=== PATIENT | male | born 1960 | race Caucasian/White ===

== ENCOUNTER 2020-06-01 08:14 | Outpatient (REF) | payer OTHER, SELFPAY ==
[2020-06-01 11:51] LABS: Alanine Aminotransferase 32 U/L (0-40); Albumin Level 4.6 g/dL (3.5-5.0); Alkaline Phosphatase 75 U/L (39-117); Anion Gap 15 (12-20); Aspartate Amino Transferase 26 U/L (5-37); Bilirubin Total 0.6 mg/dL (0.0-1.0); Blood Urea Nitrogen 16 mg/dL (9-16); Calcium 9.5 mg/dL (8.4-10.2); Carbon Dioxide 30 mmol/L (22-29); Chloride 100 mmol/L (96-108); Cholesterol 163 mg/dL; Estimated Glomerular Filt Rate > 60; Glucose Fasting 125 mg/dL (60-99); HDL Cholesterol 43 mg/dL; LDL Cholesterol Calculated 101 mg/dl; Potassium 4.7 mmol/l (3.3-5.1); Sodium 140 mmol/L (135-145); Total Protein 7.7 g/dL (6.5-8.0); Triglycerides 99 mg/dL
[2020-06-01 12:30] LABS: Creatinine Urine 191.15 mg/dL; Microalbum/Creatinine Ratio Ur 5.7 ug/mg cr
== END 2020-06-01 08:15 | disposition home or self-care (01) ==
LOC: HO.HMGCLDS 08:14
PROVIDERS: PCP Internal Medicine; Visit Provider Internal Medicine
DX: E78.2 Mixed hyperlipidemia (principal); E11.9 Type 2 diabetes mellitus without complications; Z79.4 Long term (current) use of insulin
CPT/HCPCS: 36415; 80053; 80061; 82043

== ENCOUNTER 2021-02-25 07:50 | Outpatient (REF) | payer OTHER, SELFPAY ==
[2021-02-25 11:44] LABS: Estimated Average Glucose 146 mg/dL; Hemoglobin A1c % 6.7 %
[2021-02-25 12:05] LABS: Prostate Specific Antigen Scr 0.69 ng/mL (<0.05-4.0)
[2021-02-25 12:16] LABS: Alanine Aminotransferase 24 U/L (0-40); Albumin Level 4.4 g/dL (3.5-5.0); Alkaline Phosphatase 73 U/L (39-117); Anion Gap 13 (12-20); Aspartate Amino Transferase 19 U/L (5-37); Bilirubin Total < 0.2 mg/dL (0.0-1.0); Blood Urea Nitrogen 20 mg/dL (9-16); Calcium 9.7 mg/dL (8.4-10.2); Carbon Dioxide 28 mmol/L (22-29); Chloride 102 mmol/L (96-108); Cholesterol 166 mg/dL; Estimated Glomerular Filt Rate > 60; Glucose Fasting 106 mg/dL (60-99); HDL Cholesterol 41 mg/dL; LDL Cholesterol Calculated 111 mg/dl; Potassium 4.8 mmol/L (3.3-5.1); Sodium 138 mmol/L (135-145); Total Protein 7.5 g/dL (6.5-8.0); Triglycerides 73 mg/dL
== END 2021-02-25 07:51 | disposition home or self-care (01) ==
LOC: HO.HMGCLDS 07:50
PROVIDERS: PCP Internal Medicine; Visit Provider Internal Medicine
DX: Z00.00 Encounter for general adult medical examination without abnormal findings (principal); E78.2 Mixed hyperlipidemia; E11.9 Type 2 diabetes mellitus without complications; Z79.4 Long term (current) use of insulin; Z12.5 Encounter for screening for malignant neoplasm of prostate
CPT/HCPCS: 36415; 80053; 80061; 83036; 84153

== ENCOUNTER 2022-02-17 06:35 | Outpatient (REF) | payer BC, SELFPAY ==
[2022-02-17 12:00] LABS: Estimated Average Glucose 146 mg/dL; Hemoglobin A1c % 6.7 %
[2022-02-17 12:06] LABS: Alanine Aminotransferase 20 U/L (0-40); Albumin Level 4.4 g/dL (3.5-5.0); Alkaline Phosphatase 79 U/L (39-117); Anion Gap 18 (12-20); Aspartate Amino Transferase 22 U/L (5-37); Bilirubin Total 0.4 mg/dL (0.0-1.0); Blood Urea Nitrogen 18 mg/dL (9-16); Calcium 9.6 mg/dL (8.4-10.2); Carbon Dioxide 25 mmol/L (22-29); Chloride 100 mmol/L (96-108); Cholesterol 194 mg/dL; Estimated Glomerular Filt Rate > 60; Glucose Fasting 105 mg/dL (60-99); HDL Cholesterol 43 mg/dL; LDL Cholesterol Calculated 138 mg/dl; Sodium 138 mmol/L (135-145); Total Protein 7.5 g/dL (6.5-8.0); Triglycerides 65 mg/dL
== END 2022-02-17 06:36 | disposition home or self-care (01) ==
LOC: HO.HMGCLDS 06:35
PROVIDERS: PCP Internal Medicine; Visit Provider Internal Medicine
DX: Z00.00 Encounter for general adult medical examination without abnormal findings (principal); E11.9 Type 2 diabetes mellitus without complications; E78.2 Mixed hyperlipidemia; Z79.4 Long term (current) use of insulin
CPT/HCPCS: 36415; 80053; 80061; 83036

== ENCOUNTER 2022-06-01 07:51 | Outpatient (REF) | payer BC, SELFPAY ==
[2022-06-01 11:29] LABS: MANUAL DIFF FLAG NO
[2022-06-01 11:56] LABS: Basophils Absolute Auto 0.1 X10*3/uL (0.0-0.2); Basophils Percent Auto 0.6 % (0-2); Eosinophils Absolute Auto 0.5 X10*3/uL (0.0-0.4); Eosinophils Percent Auto 5.7 % (0-4); Hematocrit 43.2 % (42.0-52.0); Hemoglobin 13.6 g/dl (14.0-18.0); Imm Gran Abs Auto 0.03 X10*3/uL (0.00-0.03); Imm Gran Pct Auto 0.4 % (0.0-0.4); Lymphocytes Absolute Auto 2.7 X10*3/uL (1.2-4.9); Mean Corpuscular HGB Conc 31.5 g/dl (31.0-36.0); Mean Corpuscular Hemoglobin 26.5 pg (27.0-33.0); Mean Corpuscular Volume 84.2 fL (80.0-98.0); Mean Platelet Volume 9.1 fL (9.4-12.4); Monocytes Absolute Auto 0.7 X10*3/uL (0.1-1.2); Monocytes Percent Auto 8.4 % (2-11); Neutrophils Absolute Auto 4.2 x10*3/uL (2.0-8.3); Neutrophils Percent Auto 51.9 % (45-73); Platelet Count 399 X10*3/uL (160-400); Red Blood Count 5.13 X10*6/uL (4.60-5.80); Red Cell Distribution Width 15.1 % (11.0-16.0); White Blood Count 8.1 X10*3/uL (4.8-10.8)
[2022-06-01 12:29] LABS: Microalbumin Urine < 5.0 mg/L
[2022-06-01 12:34] LABS: Estimated Average Glucose 163 mg/dL; Hemoglobin A1c % 7.3 %
[2022-06-01 13:17] LABS: Alanine Aminotransferase 23 U/L (0-40); Albumin Level 4.4 g/dL (3.5-5.0); Alkaline Phosphatase 82 U/L (39-117); Anion Gap 12 (12-20); Aspartate Amino Transferase 23 U/L (5-37); Bilirubin Total 0.7 mg/dL (0.0-1.0); Blood Urea Nitrogen 18 mg/dL (9-16); Calcium 9.7 mg/dL (8.4-10.2); Carbon Dioxide 28 mmol/L (22-29); Chloride 102 mmol/L (96-108); Cholesterol 170 mg/dL; Estimated Glomerular Filt Rate > 60; Glucose Fasting 103 mg/dL (60-99); HDL Cholesterol 43 mg/dL; LDL Cholesterol Calculated 113 mg/dl; Potassium 4.4 mmol/L (3.3-5.1); Sodium 138 mmol/L (135-145); Total Protein 7.3 g/dL (6.5-8.0); Triglycerides 71 mg/dL
== END 2022-06-01 07:52 | disposition home or self-care (01) ==
LOC: HO.HMGCLDS 07:51
PROVIDERS: PCP Internal Medicine; Visit Provider Internal Medicine
DX: Z00.00 Encounter for general adult medical examination without abnormal findings (principal); Z12.5 Encounter for screening for malignant neoplasm of prostate; E11.9 Type 2 diabetes mellitus without complications; E78.2 Mixed hyperlipidemia; Z79.4 Long term (current) use of insulin
CPT/HCPCS: 36415; 80053; 80061; 82043; 83036; 84153; 85025

== ENCOUNTER 2022-09-12 09:47 | Outpatient (REF) | payer BC, SELFPAY ==
[2022-09-12 11:17] LABS: MANUAL DIFF FLAG NO
[2022-09-12 11:45] LABS: Estimated Average Glucose 148 mg/dL; Hemoglobin A1C 182.7429 umol/L; Hemoglobin A1c % 6.8 %
[2022-09-12 11:48] LABS: Basophils Percent Auto 0.4 % (0-2); Eosinophils Absolute Auto 0.3 X10*3/uL (0.0-0.4); Eosinophils Percent Auto 3.8 % (0-4); Hemoglobin 13.5 g/dl (14.0-18.0); Imm Gran Pct Auto 1.2 % (0.0-0.4); Lymphocytes Absolute Auto 2.3 X10*3/uL (1.2-4.9); Lymphocytes Percent Auto 27.4 % (20-40); Mean Corpuscular HGB Conc 32.1 g/dl (31.0-36.0); Mean Corpuscular Hemoglobin 26.6 pg (27.0-33.0); Mean Corpuscular Volume 82.8 fL (80.0-98.0); Mean Platelet Volume 9.3 fL (9.4-12.4); Monocytes Absolute Auto 0.8 X10*3/uL (0.1-1.2); Monocytes Percent Auto 8.9 % (2-11); Neutrophils Percent Auto 58.3 % (45-73); Platelet Count 338 X10*3/uL (160-400); Red Blood Count 5.07 X10*6/uL (4.60-5.80); Red Cell Distribution Width 17.2 % (11.0-16.0); White Blood Count 8.5 X10*3/uL (4.8-10.8)
[2022-09-12 12:20] LABS: Alanine Aminotransferase 30 U/L (0-40); Albumin Level 4.3 g/dL (3.5-5.0); Alkaline Phosphatase 64 U/L (39-117); Anion Gap 14 (12-20); Aspartate Amino Transferase 24 U/L (5-37); Bilirubin Total 0.8 mg/dL (0.0-1.0); Blood Urea Nitrogen 18 mg/dL (9-16); Calcium 9.4 mg/dL (8.4-10.2); Carbon Dioxide 27 mmol/L (22-29); Chloride 100 mmol/L (96-108); Cholesterol 125 mg/dL; Estimated Glomerular Filt Rate > 60; Glucose Fasting 95 mg/dL (60-99); HDL Cholesterol 37 mg/dL; LDL Cholesterol Calculated 75 mg/dl; Potassium 4.5 mmol/L (3.3-5.1); Sodium 136 mmol/L (135-145); Total Protein 6.9 g/dL (6.5-8.0); Triglycerides 69 mg/dL
== END 2022-09-12 09:48 | disposition home or self-care (01) ==
LOC: HO.HMGCLDS 09:47
PROVIDERS: PCP Internal Medicine; Visit Provider Internal Medicine
DX: E11.9 Type 2 diabetes mellitus without complications (principal); E78.2 Mixed hyperlipidemia; Z79.4 Long term (current) use of insulin
CPT/HCPCS: 36415; 80053; 80061; 83036; 85025

== ENCOUNTER 2022-10-28 13:00 | Outpatient (RCR) | payer BC, SELFPAY ==
[2022-10-27 12:38] VITALS: BP 148/98; PULSE 65; O2SAT 98
--- NOTE | 2022-10-28 09:49 | MHC.PT.EP ---
[facility] [place] Office [place] [facility] [place] Office [address] Allen Payton [address] [phone] F: [phone] F: [phone] F: [phone] F: [phone] Physical Therapy Plan of Care Date of Evaluation: Date of Surgery: Diagnosis: This is a 62 yo male presenting to skilled PT with a script for vertigo. Assessment: This is a 62 yo male presenting to skilled PT with a script for vertigo. Patient reporting that he has had symptoms that started last year. He saw his PCP who started him on meclizine and after 3 weeks his symptoms improved. However 2 months ago symptoms started again. He recently had an ME back in June and does want to take more medication so is here to try PT. Patient reporting that his symptoms are described as room spinning and occur when sleeping, turning to the L, transferring supine <> sit, looking up overhead and looking to the L. He is not currently working due to ME in jun (supposed to return in december) but is also concerned about returning to work with these new symptoms of dizziness. Examination shows + oculomotor tests with saccades, (-) VBI B, and decreased cervical rotation and lateral flexion AROM. He was (+) for BPPV with luiza-hallpike L and performed 2 dave maneuvers which was improved s/p tx. Balance was normal except for some lightheadedness that was felt with head turns during DGI which may be vertigo related. S/S consistent with L PC BPPV and he would benefit from PT 2x/wk for 4wks to address impairments, implement HEP and optimize functional mobility. 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 Manual therapy to restore motion and function. Therapeutic exercise to improve strength and flexibility. Neuromuscular re-education for posture and balance. Therapeutic activities to return to functional activities of daily living. Electronically signed by: Rosa Akins PT Please sign and return to therapist. Thank you for your referral.
--- NOTE | 2022-12-02 09:52 | MHC.PT.DC ---
[facility] [place] Office [place] Office [place] Office [address] Allen Payton [address] [phone] F: [phone] F: [phone] F: [phone] F: [phone] Physical Therapy Discharge Report Diagnosis: This is a 62 yo male presenting to skilled PT with a script for vertigo. Date of Surgery: Date of Evaluation: 10/28/22 Date of Discharge: 12/02/22 Treatments to Date: 2 Cancellations to Date: 0 No Shows to Date: 0 Discharge Status: Achieved Goals Improved Function Independent with HEP Discharge Summary: 10/28: Patient was negative in all 6 canals, he had no symptoms and has been feeling much better. He was scheduled again the following week, educated him that if he continues to feel well than he can call to cancel which he did. I kept his chart open for 30 days and then DC'd. Electronically signed by: Rosa Akins, PT Please sign and return to therapist. Thank you for your referral.
== END 2022-12-02 09:52 | disposition home or self-care (01) ==
LOC: HO.PTCHIC 13:00
PROVIDERS: PCP Internal Medicine; Visit Provider Internal Medicine
DX: H81.10 Benign paroxysmal vertigo, unspecified ear (principal)
CPT/HCPCS: 95992; 97162

== ENCOUNTER 2022-12-08 08:39 | Outpatient (REF) | payer BC, SELFPAY ==
[2022-12-08 13:55] LABS: Creatinine Urine 98.24 mg/dL; Microalbum/Creatinine Ratio Ur 7.1 ug/mg cr
[2022-12-08 14:13] LABS: Alanine Aminotransferase 31 U/L (0-40); Albumin Level 4.4 g/dL (3.5-5.0); Alkaline Phosphatase 68 U/L (39-117); Anion Gap 15 (12-20); Aspartate Amino Transferase 29 U/L (5-37); Bilirubin Total 0.6 mg/dL (0.0-1.0); Blood Urea Nitrogen 20 mg/dL (9-16); Calcium 9.7 mg/dL (8.4-10.2); Carbon Dioxide 27 mmol/L (22-29); Chloride 98 mmol/L (96-108); Cholesterol 103 mg/dL; Estimated Glomerular Filt Rate > 60; Glucose Fasting 119 mg/dL (60-99); HDL Cholesterol 32 mg/dL; LDL Cholesterol Calculated 57 mg/dl; Potassium 3.9 mmol/L (3.3-5.1); Sodium 136 mmol/L (135-145); Total Protein 7.7 g/dL (6.5-8.0); Triglycerides 71 mg/dL
[2022-12-08 14:18] LABS: Estimated Average Glucose 148 mg/dL; Hemoglobin A1c % 6.8 %
== END 2022-12-08 08:40 | disposition home or self-care (01) ==
LOC: HO.HMGCLDS 08:39
PROVIDERS: PCP Internal Medicine; Visit Provider Internal Medicine
DX: I25.10 Atherosclerotic heart disease of native coronary artery without angina pectoris (principal); E78.2 Mixed hyperlipidemia; E11.9 Type 2 diabetes mellitus without complications
CPT/HCPCS: 36415; 80053; 80061; 82043; 83036

== ENCOUNTER 2022-12-13 08:20 | Outpatient (AMB) | payer BC, SELFPAY ==
--- NOTE | 2022-12-13 08:50 | MHC.PC.OV ---
Vital Signs 12/13/22 08:51 Height 5 ft 7 in Weight 156 lb BMI 24.4 BP 104/72 Blood Pressure Location Lt brachial Position Sitting Pulse 78 Pulse Source Pulse Oximeter Pulse Oximetry (%) 97 Oxygen Delivery Method Room Air Intake Visit Reasons: 3 Month follow up Intake Note: Pt is here today for 3 months follow up visit. Pt states that he would like to return to work in December. Pt states that he is feeling much better. Allergies empagliflozin [Jardiance] Adverse Reaction (Unknown, Verified 12/13/22 08:55) increased urination, candidiasis Medication List - Last Reconciled 12/13/22 by Lilo Palafox MD aspirin 81 mg PO DAILY atorvastatin 80 mg PO DAILY Farxiga (dapagliflozin propanediol) 10 mg PO DAILY NS lisinopril 5 mg PO DAILY metformin 850 mg PO TID metoprolol succinate ER 12.5 mg (1/2 x 25 mg) PO DAILY sertraline 50 mg PO DAILY ticagrelor (Brilinta) 90 mg PO BID Tobacco use date assessed: 12/13/22 Dental Screening Dental Screen Date: 12/13/22 Did you have a dental visit in the last 12 months?: Yes Did you have a dental problem in the last 6 months where you did not have access to dental care?: No Was dental information given to patient?: Patient has dentist HPI 3 Month follow up HPI Details Pt presents for f/u HTN. DM 2, hyperlipid, stable on meds. PFSH Medical History Hyperlipidemia Lumbar radiculopathy Type 2 diabetes mellitus Surgical History H/O colonoscopy No pertinent past surgical history Family History Father No problems noted. Mother No problems noted. Social History Housing: House Alcohol intake: never Patient Tobacco Use Status: Current everyday Tobacco user Tobacco use type: Cigarette Cigarettes Per Day: 8 e-Cigarette/Vaping Use: Never Used Current occupational status: employed Cognitive needs: No Hearing needs: No Vision needs: Yes Questionnaire Thrive Questionnaire Date Thrive assessed: 06/08/22 TREVIN-7 AMB Questionnaire TREVIN-7 Date TREVIN - 7 assessed: 06/08/22 Source: Developed by Drs. Drew Gutierrez, Lindsay Feliz, Tyler Chu and colleagues, with an educational cira from [employer]. Review of Systems Const All systems reviewed & are unremarkable except as noted in HPI and below Reports no additional complaints Eyes Reports no additional complaints ENT Reports no additional complaints Card Reports no additional complaints Resp Reports no additional complaints GI Reports no additional complaints Reports no additional complaints Physical exam (Primary Care) Vital Signs: Last Vital Signs Pulse 78 12/13/22 08:51 BP 104/72 12/13/22 08:51 Pulse Ox 97 12/13/22 08:51 Oxygen Delivery Method Room Air 12/13/22 08:51 BMI result Body Mass Index 24.4 Tobacco/Smoking Status: Tobacco use Status Tobacco use date assessed 12/13/22 12/13/22 08:57 Patient Tobacco Use Status Current everyday Tobacco 12/13/22 08:51 Tobacco use type Cigarette 12/13/22 08:51 e-Cigarette/Vaping Use Never Used 12/13/22 08:51 Thrive Assessment: Date of Thrive Assessment Date Thrive assessed 06/08/22 12/13/22 08:51 Const General: no acute distress HENMT Head: Yes normal to inspection General nose exam: Normal external nose present Mouth: Normal oral and palatal mucosa present Neck Neck: Yes no lymphadenopathy and Yes supple Resp Effort & Inspection: normal respiratory effort Auscultation: clear to auscultation bilaterally Cardio Rhythm: regular rhythm Heart sounds: S1 normal heart sound present and S2 normal heart sound present GI Inspection: Yes normal to inspection Palpation (GI): Soft to palpation Percussion: Yes normal to percussion Auscultation: normal bowel sounds Assessment and Plan Assessment & Plan (1) CAD (coronary artery disease): Comment: inf STEMI, S/P RENATA to mid RCA 07/10/22, CATH 30% stenosis prox LAD, CX, Echo EF 45-50%, AKINESIS DISEASE IN BASAL MID INFERIOR WALL Code(s): I25.10 - Atherosclerotic heart disease of [place] coronary artery without angina pectoris Plan: cont meds (2) Type 2 diabetes mellitus: Code(s): E11.9 - Type 2 diabetes mellitus without complications Plan: A1C 6.8, ADA diet increase exercise discussed with the patient. Trulicity 0.75 will be added to metformin and Farxiga. Return for physical in 4 months with a fasting labs before (3) Mixed hyperlipidemia: Code(s): E78.2 - Mixed hyperlipidemia Plan: cont statin Orders: Orders Comprehensive [place]. Panel Fast 4 Months E11.9 - Type 2 diabetes mellitus without complications, E78.2 - Mixed hyperlipidemia, I25.10 - Atherosclerotic heart disease of [place] coronary artery without angina pectoris Hemoglobin A1c 4 Months E11.9 - Type 2 diabetes mellitus without complications, E78.2 - Mixed hyperlipidemia, I25.10 - Atherosclerotic heart disease of [place] coronary artery without angina pectoris Complete Blood Count Auto Diff 4 Months E11.9 - Type 2 diabetes mellitus without complications, E78.2 - Mixed hyperlipidemia, I25.10 - Atherosclerotic heart disease of [place] coronary artery without angina pectoris Microalbumin, Random (w Creat) 4 Months E11.9 - Type 2 diabetes mellitus without complications, E78.2 - Mixed hyperlipidemia, I25.10 - Atherosclerotic heart disease of [place] coronary artery without angina pectoris Medications: New dulaglutide (Trulicity) 0.75 mg (0.5 mL) subcut QWEEK 6 mL 1RF Coding Level of Care Code Est Pt Level 4 (37441) Diagnoses CAD (coronary artery disease) I25.10 Type 2 diabetes mellitus E11.9 Mixed hyperlipidemia E78.2
[2022-12-13 08:51] VITALS: BP 104/72; PULSE 78; O2SAT 97; BMI 24.4
== END 2022-12-13 09:23 | disposition home or self-care (01) ==
PROVIDERS: Visit Provider Internal Medicine
DX: I25.10 Atherosclerotic heart disease of native coronary artery without angina pectoris (principal); E11.9 Type 2 diabetes mellitus without complications; E78.2 Mixed hyperlipidemia
CPT/HCPCS: 99214

== ENCOUNTER 2023-02-24 07:06 | Outpatient (REF) | payer BC, SELFPAY ==
[2023-02-24 13:48] LABS: Estimated Average Glucose 134 mg/dL; Hemoglobin A1c % 6.3 % (<6.0)
== END 2023-02-24 07:07 | disposition home or self-care (01) ==
LOC: HO.HMGCLDS 07:06
PROVIDERS: PCP Internal Medicine; Visit Provider Internal Medicine
DX: E78.2 Mixed hyperlipidemia (principal); I25.10 Atherosclerotic heart disease of native coronary artery without angina pectoris; E11.9 Type 2 diabetes mellitus without complications
CPT/HCPCS: 36415; 80053; 82043; 82570; 83036; 85025

== ENCOUNTER 2023-02-28 07:49 | Outpatient (AMB) | payer BC, SELFPAY ==
--- NOTE | 2023-02-28 07:51 | MHC.PC.OV ---
Vital Signs 02/28/23 07:56 Height 5 ft 7 in Weight 153 lb BMI 24.0 BP 100/64 Blood Pressure Location Rt brachial Position Sitting Pulse 72 Pulse Source Pulse Oximeter Pulse Oximetry (%) 97 Oxygen Delivery Method Room Air Intake Visit Reasons: Annual PE Intake Note: Pt is here today for PE. Allergies empagliflozin [Jardiance] Adverse Reaction (Unknown, Verified 02/28/23 07:52) increased urination, candidiasis Medication List - Last Reconciled 02/28/23 by Lilo Palafox MD aspirin 81 mg PO DAILY atorvastatin 80 mg PO DAILY dulaglutide (Trulicity) 0.75 mg (0.5 mL) subcut QWEEK Farxiga (dapagliflozin propanediol) 10 mg PO DAILY NS lisinopril 5 mg PO DAILY metformin 850 mg PO TID metoprolol succinate ER 12.5 mg (1/2 x 25 mg) PO DAILY sertraline 50 mg PO DAILY ticagrelor (Brilinta) 90 mg PO BID Tobacco use date assessed: 12/13/22 HPI Annual PE HPI Details Patient presents for physical.. PFSH Medical History Lumbar radiculopathy Type 2 diabetes mellitus Hyperlipidemia Surgical History H/O colonoscopy No pertinent past surgical history Family History Father No problems noted. Mother No problems noted. Social History Housing: House Alcohol intake: never Patient Tobacco Use Status: Current everyday Tobacco user Tobacco use type: Cigarette Cigarettes Per Day: 8 e-Cigarette/Vaping Use: Never Used Current occupational status: employed Cognitive needs: No Hearing needs: No Vision needs: Yes Questionnaire Thrive Questionnaire Date Thrive assessed: 06/08/22 TREVIN-7 AMB Questionnaire TREVIN-7 Date TREVIN - 7 assessed: 06/08/22 Source: Developed by Drs. Drew Gutierrez, Lindsay Feliz, Tyler Chu and colleagues, with an educational cira from [employer]. Review of Systems Const All systems reviewed & are unremarkable except as noted in HPI and below Reports no additional complaints Eyes Reports no additional complaints ENT Reports no additional complaints Card Reports no additional complaints Resp Reports no additional complaints GI Reports no additional complaints Reports no additional complaints Physical exam (Primary Care) Vital Signs: Last Vital Signs Pulse 72 02/28/23 07:56 BP 100/64 02/28/23 07:56 Pulse Ox 97 02/28/23 07:56 Oxygen Delivery Method Room Air 02/28/23 07:56 BMI result Body Mass Index 24.0 Tobacco/Smoking Status: Tobacco use Status Tobacco use date assessed 12/13/22 02/28/23 07:54 Patient Tobacco Use Status Current everyday Tobacco 02/28/23 07:54 Tobacco use type Cigarette 02/28/23 07:54 e-Cigarette/Vaping Use Never Used 02/28/23 07:54 Thrive Assessment: Date of Thrive Assessment Date Thrive assessed 06/08/22 02/28/23 07:54 Const General: no acute distress HENMT Head: Yes normal to inspection Face and sinus: Yes normal facial exam Eyes General: appearance normal, both eyes and all related structures Neck Neck: Yes no lymphadenopathy and Yes supple Resp Effort & Inspection: normal respiratory effort Auscultation: clear to auscultation bilaterally Cardio Rhythm: regular rhythm Heart sounds: S1 normal heart sound present and S2 normal heart sound present GI Inspection: Yes normal to inspection Palpation (GI): Soft to palpation Percussion: Yes normal to percussion Auscultation: normal bowel sounds Extrem General: Yes no clubbing, cyanosis or edema Assessment and Plan Assessment & Plan (1) Type 2 diabetes mellitus: Code(s): E11.9 - Type 2 diabetes mellitus without complications Plan: A1c is down to 6.3, ADA diet increase physical activity discussed with the patient. He will continue same medications and will return in 4 months with a fasting labs before (2) Mixed hyperlipidemia: Code(s): E78.2 - Mixed hyperlipidemia Plan: Continue statin (3) Annual physical exam: Code(s): Z00.00 - Encounter for general adult medical examination without abnormal findings Plan: Well-balanced diet regular physical activity discussed with the patient. (4) Ex-smoker: Comment: 1 PPD X 30 years quit 2022 Code(s): Z87.891 - Personal history of nicotine dependence Plan: Referred to lung cancer screening program Orders: Orders Comprehensive [place]. Panel Fast 4 Months E11.9 - Type 2 diabetes mellitus without complications, E78.2 - Mixed hyperlipidemia, Z00.00 - Encounter for general adult medical examination without abnormal findings Microalbumin, Random (w Creat) 4 Months E11.9 - Type 2 diabetes mellitus without complications, E78.2 - Mixed hyperlipidemia, Z00.00 - Encounter for general adult medical examination without abnormal findings Hemoglobin A1c 4 Months E11.9 - Type 2 diabetes mellitus without complications, E78.2 - Mixed hyperlipidemia, Z00.00 - Encounter for general adult medical examination without abnormal findings Complete Blood Count Auto Diff 4 Months E11.9 - Type 2 diabetes mellitus without complications, E78.2 - Mixed hyperlipidemia, Z00.00 - Encounter for general adult medical examination without abnormal findings Lipid Panel 4 Months E11.9 - Type 2 diabetes mellitus without complications, E78.2 - Mixed hyperlipidemia, Z00.00 - Encounter for general adult medical examination without abnormal findings Referrals Thoracic Surgery Referral Z87.891 - Personal history of nicotine dependence Coding Level of Care Code Est Pt Prev Care 40-64y(71103) Diagnoses Type 2 diabetes mellitus E11.9 Mixed hyperlipidemia E78.2 Annual physical exam Z00.00 Ex-smoker Z87.891
[2023-02-28 07:56] VITALS: BP 100/64; PULSE 72; O2SAT 97; BMI 24.0
== END 2023-02-28 08:34 | disposition home or self-care (01) ==
PROVIDERS: Visit Provider Internal Medicine
DX: E11.9 Type 2 diabetes mellitus without complications (principal); E78.2 Mixed hyperlipidemia; Z00.00 Encounter for general adult medical examination without abnormal findings; Z87.891 Personal history of nicotine dependence
CPT/HCPCS: 99396

== ENCOUNTER 2023-07-12 07:41 | Outpatient (REF) | payer BC, SELFPAY ==
[2023-07-12 11:15] LABS: MANUAL DIFF FLAG NO
[2023-07-12 11:26] LABS: Basophils Percent Auto 0.5 % (0-2); Eosinophils Absolute Auto 0.4 X10*3/uL (0.0-0.4); Eosinophils Percent Auto 5.3 % (0-4); Hematocrit 39.2 % (42.0-52.0); Hemoglobin 12.4 g/dl (14.0-18.0); Imm Gran Abs Auto 0.04 X10*3/uL (0.00-0.03); Imm Gran Pct Auto 0.5 % (0.0-0.4); Lymphocytes Absolute Auto 2.3 X10*3/uL (1.2-4.9); Lymphocytes Percent Auto 29.4 % (20-40); Mean Corpuscular HGB Conc 31.6 g/dl (31.0-36.0); Mean Corpuscular Hemoglobin 25.6 pg (27.0-33.0); Mean Corpuscular Volume 80.8 fL (80.0-98.0); Monocytes Absolute Auto 0.8 X10*3/uL (0.1-1.2); Monocytes Percent Auto 10.4 % (2-11); Neutrophils Absolute Auto 4.2 x10*3/uL (2.0-8.3); Neutrophils Percent Auto 53.9 % (45-73); Platelet Count 372 X10*3/uL (160-400); Red Blood Count 4.85 X10*6/uL (4.60-5.80); Red Cell Distribution Width 15.8 % (11.0-16.0); White Blood Count 7.8 X10*3/uL (4.8-10.8)
[2023-07-12 11:40] LABS: Alanine Aminotransferase 23 U/L (0-40); Albumin Level 4.1 g/dL (3.5-5.0); Alkaline Phosphatase 77 U/L (39-117); Anion Gap 13 (12-20); Aspartate Amino Transferase 27 U/L (5-37); Bilirubin Total 0.5 mg/dL (0.0-1.0); Blood Urea Nitrogen 20 mg/dL (9-16); Calcium 9.7 mg/dL (8.4-10.2); Carbon Dioxide 28 mmol/L (22-29); Chloride 101 mmol/L (96-108); Cholesterol 97 mg/dL (<200); Estimated Average Glucose 143 mg/dL; Estimated Glomerular Filt Rate > 60; Glucose Fasting 89 mg/dL (60-99); HDL Cholesterol 38 mg/dL (>40); Hemoglobin A1c % 6.6 % (<6.0); LDL Cholesterol Calculated 49 mg/dL (<100); Potassium 3.9 mmol/L (3.3-5.1); Sodium 138 mmol/L (135-145); Total Protein 7.4 g/dL (6.5-8.0); Triglycerides 51 mg/dL (<150)
[2023-07-12 11:54] LABS: Creatinine Urine 39.99 mg/dL; Microalbumin Urine < 5.0 mg/L
== END 2023-07-12 07:42 | disposition home or self-care (01) ==
LOC: HO.HMGCLDS 07:41
PROVIDERS: PCP Internal Medicine; Visit Provider Internal Medicine
DX: Z00.00 Encounter for general adult medical examination without abnormal findings (principal); E11.9 Type 2 diabetes mellitus without complications; E78.2 Mixed hyperlipidemia
CPT/HCPCS: 36415; 80053; 80061; 82570; 83036; 85025

== ENCOUNTER 2023-07-18 08:34 | Outpatient (AMB) | payer BC, SELFPAY ==
--- NOTE | 2023-07-18 08:41 | MHC.PC.OV ---
Vital Signs 07/18/23 08:42 Height 5 ft 7 in Weight 157 lb BMI 24.6 BP 114/74 Blood Pressure Location Rt brachial Position Sitting Pulse 76 Pulse Source Pulse Oximeter Pulse Oximetry (%) 98 Oxygen Delivery Method Room Air Intake Visit Reasons: 4 month fu Intake Note: Pt is here today for 4 months follow up visit. Allergies empagliflozin [Jardiance] Adverse Reaction (Unknown, Verified 07/18/23 08:51) increased urination, candidiasis Medication List - Last Reconciled 07/18/23 by Lilo Palafox MD aspirin 81 mg PO DAILY atorvastatin 80 mg PO DAILY clotrimazole 1% 1 appl topical BID dulaglutide (Trulicity) 0.75 mg (0.5 mL) subcut QWEEK Farxiga (dapagliflozin propanediol) 10 mg PO DAILY NS fluconazole 100 mg PO DAILY lisinopril 5 mg PO DAILY metformin 850 mg PO TID metoprolol succinate ER 12.5 mg (1/2 x 25 mg) PO DAILY sertraline 50 mg PO DAILY ticagrelor (Brilinta) 90 mg PO BID Tobacco use date assessed: 07/18/23 Dental Screening Dental Screen Date: 07/18/23 Did you have a dental visit in the last 12 months?: Yes Did you have a dental problem in the last 6 months where you did not have access to dental care?: No Was dental information given to patient?: Patient has dentist HPI 4 month fu HPI Details Pt presents for f/u DM 2, hyperlipid, HTN, stable on meds. Pt c/o feeling weak when working and bilateral lifting heavy objects for more than 2 hrs. PFSH Medical History Lumbar radiculopathy Type 2 diabetes mellitus Hyperlipidemia Surgical History H/O colonoscopy No pertinent past surgical history Family History Father No problems noted. Mother No problems noted. Social History Housing: House Alcohol intake: never Patient Tobacco Use Status: Former Tobacco user Quit Date: over a year Tobacco use type: Cigarette Cigarettes Per Day: 8 e-Cigarette/Vaping Use: Never Used Current occupational status: employed Cognitive needs: No Hearing needs: No Vision needs: Yes Questionnaire PHQ-9 Over the last 2 weeks, how often have you been bothered by any of the following problems? 1. Little interest or pleasure in doing things: not at all 2. Feeling down, depressed, or hopeless: not at all 3. Trouble falling or staying asleep, or sleeping too much: not at all 4. Feeling tired or having little energy: more than half the days 5. Poor appetite or overeating: not at all 6. Feeling bad about yourself - or that you are a failure or have let yourself or your family down: not at all 7. Trouble concentrating on things, such as reading the newspaper or watching television: not at all 8. Moving or speaking so slowly that other people could have noticed. Or the opposite - being so fidgety or restless that you have been moving around a lot more than usual: not at all 9. Thoughts that you would be better off or of hurting yourself in some way: not at all Total score: 2 Depression Screening Interpretation: Negative Depression Screening Done: Yes Source: Developed by Drs. Drew Gutierrez, Lindsay Feliz, Tyler Chu and colleagues, with an educational cira from [employer]. Thrive Questionnaire Date Thrive assessed: 07/18/23 I am a: Patient What is your living situation today?: I have a steady place to live Within the past 12 months, did the food you bought not last and you didn't have the money to get more?: Never true Within the past 12 months, did you worry whether your food would run out before you got money to buy more?: Never true Do you have trouble paying for medicines?: No Do you have trouble getting transportation to medical appointments?: No Do you have trouble paying your heating and electricity bill?: No Do you have trouble taking care of your child, family member or friend?: No Do you have trouble with day-to-day activities such as bathing, preparing meals, shopping, managing finances, etc.?: No Are you currently unemployed and looking for a job?: No Are you interested in more education?: No Please select the resources that you would like help with: None Currently or been in a relationship where the following occur: no concerns reported THRIVE Score: 0 AUDIT C Alcohol Use Questionnaire (AUDIT-C) 1. How often do you have a drink containing alcohol?: Never 3. How often do you have six or more drinks on one occasion?: Never Total Score: 0 TREVIN-7 AMB Questionnaire TREVIN-7 Date TREVIN - 7 assessed: 07/18/23 Feeling nervous, anxious, or on edge: 0 = Not at all Not being able to stop or control worryin = Not at all Worrying too much about different things: 0 = Not at all Trouble relaxin = Not at all Being so restless that it is hard to sit still: 0 = Not at all Becoming easily annoyed or irritable: 0 = Not at all Feeling afraid as if something awful might happen: 0 = Not at all Total TREVIN-7 score (0-4 normal; 5-9 mild; 10-14 moderate; 15-21 severe): 0 Source: Developed by Drs. Drew Gutierrez, Lindsay Feliz, Tyler Chu and colleagues, with an educational cira from [employer]. Review of Systems Const All systems reviewed & are unremarkable except as noted in HPI and below Reports no additional complaints Eyes Reports no additional complaints ENT Reports no additional complaints Card Reports no additional complaints Resp Reports no additional complaints GI Reports no additional complaints Reports no additional complaints Physical exam (Primary Care) Vital Signs: Last Vital Signs Pulse 76 07/18/23 08:42 BP 114/74 07/18/23 08:42 Pulse Ox 98 07/18/23 08:42 Oxygen Delivery Method Room Air 07/18/23 08:42 BMI result Body Mass Index 24.6 Tobacco/Smoking Status: Tobacco use Status Tobacco use date assessed 07/18/23 07/18/23 08:56 Patient Tobacco Use Status Former Tobacco user 07/18/23 08:56 Tobacco use type Cigarette 07/18/23 08:42 e-Cigarette/Vaping Use Never Used 07/18/23 08:42 PHQ-9: PHQ-9 Score PHQ-9: Total score 2 07/18/23 09:14 Depression Screening Interpretation: Negative Thrive Assessment: Date of Thrive Assessment Date Thrive assessed 07/18/23 07/18/23 08:56 Currently or been in a relationship where the following occur: no concerns reported Const General: no acute distress HENMT Head: Yes normal to inspection Ears: hearing grossly normal bilaterally General nose exam: Normal external nose present Face and sinus: Yes normal facial exam Mouth: Normal oral and palatal mucosa present Throat: Yes posterior oropharynx normal Eyes General: appearance normal, both eyes and all related structures Neck Neck: Yes no lymphadenopathy and Yes supple Resp Effort & Inspection: normal respiratory effort Auscultation: clear to auscultation bilaterally Cardio Rhythm: regular rhythm Heart sounds: S1 normal heart sound present and S2 normal heart sound present GI Inspection: Yes normal to inspection Palpation (GI): Soft to palpation Percussion: Yes normal to percussion Auscultation: normal bowel sounds Assessment and Plan Assessment & Plan (1) Anemia: Code(s): D64.9 - Anemia, unspecified Plan: check Iron and vit B12 level (2) Type 2 diabetes mellitus: Code(s): E11.9 - Type 2 diabetes mellitus without complications Plan: A1C is 6.5, ADA diet, regular exercise, change Trulicity to Ozempic 0.25 mg weekly, f/u 3 months (3) Mixed hyperlipidemia: Code(s): E78.2 - Mixed hyperlipidemia Plan: cont statin (4) Annual physical exam: Code(s): Z00.00 - Encounter for general adult medical examination without abnormal findings Orders: Orders Comprehensive [place]. Panel Fast 4 Months D64.9 - Anemia, unspecified, E11.9 - Type 2 diabetes mellitus without complications, E78.2 - Mixed hyperlipidemia, Z00.00 - Encounter for general adult medical examination without abnormal findings Microalbumin, Random (w Creat) 4 Months D64.9 - Anemia, unspecified, E11.9 - Type 2 diabetes mellitus without complications, E78.2 - Mixed hyperlipidemia, Z00.00 - Encounter for general adult medical examination without abnormal findings IRON PROFILE Today D64.9 - Anemia, unspecified Vitamin B12 and Folate Today D64.9 - Anemia, unspecified Immunofixation Pnl, Serum Today D64.9 - Anemia, unspecified Hemoglobin A1c 4 Months D64.9 - Anemia, unspecified, E11.9 - Type 2 diabetes mellitus without complications, E78.2 - Mixed hyperlipidemia, Z00.00 - Encounter for general adult medical examination without abnormal findings Lipid Panel 4 Months D64.9 - Anemia, unspecified, E11.9 - Type 2 diabetes mellitus without complications, E78.2 - Mixed hyperlipidemia, Z00.00 - Encounter for general adult medical examination without abnormal findings Complete Blood Count Auto Diff 4 Months D64.9 - Anemia, unspecified, E11.9 - Type 2 diabetes mellitus without complications, E78.2 - Mixed hyperlipidemia, Z00.00 - Encounter for general adult medical examination without abnormal findings PSA,Total (Free>4and<10) 4 Months D64.9 - Anemia, unspecified, E11.9 - Type 2 diabetes mellitus without complications, E78.2 - Mixed hyperlipidemia, Z00.00 - Encounter for general adult medical examination without abnormal findings Medications: New semaglutide (Ozempic) 0.25 mg (0.368 mL) subcut QWEEK 9 mL 2RF Discontinued dulaglutide (Trulicity) Discontinued Reason: Doctor's Order 0.75 mg (0.5 mL) subcut QWEEK 6 mL 1RF Coding Level of Care Code Est Pt Level 4 (79132) Diagnoses Anemia D64.9 Type 2 diabetes mellitus E11.9 Mixed hyperlipidemia E78.2 Annual physical exam Z00.00
[2023-07-18 08:42] VITALS: BP 114/74; PULSE 76; O2SAT 98; BMI 24.6
== END 2023-07-18 09:30 | disposition home or self-care (01) ==
PROVIDERS: PCP Internal Medicine; Visit Provider Internal Medicine
DX: D64.9 Anemia, unspecified (principal); E11.9 Type 2 diabetes mellitus without complications; E78.2 Mixed hyperlipidemia; Z00.00 Encounter for general adult medical examination without abnormal findings
CPT/HCPCS: 99214

== ENCOUNTER 2023-07-18 09:30 | Outpatient (REF) | payer BC, SELFPAY ==
[2023-07-18 11:57] LABS: Iron 45 mcg/dL (45-160); Percent Iron Saturation 14 % (15-50); Total Iron Binding Capacity 319 mcg/dL (228-428); Unsaturated Iron Binding 274 ug/dL
[2023-07-18 17:04] LABS: Folate 8.7 ng/mL (> or = 4.0)
[2023-07-19 15:59] LABS: Vitamin B12 194 pg/mL (200-900)
[2023-07-20 22:09] LABS: IgA 198 mg/dL (70-320); IgG 1254 mg/dL (600-1540); IgM 100 mg/dL (50-300)
== END 2023-07-18 09:31 | disposition home or self-care (01) ==
LOC: HO.HMGCLDS 09:30
PROVIDERS: PCP Internal Medicine; Visit Provider Internal Medicine
DX: D64.9 Anemia, unspecified (principal)
CPT/HCPCS: 36415; 82607; 82746; 82784; 83540; 86334

== ENCOUNTER 2023-09-14 09:38 | Outpatient (REF) | payer BC, SELFPAY ==
[2023-09-14 14:42] LABS: Folate 6.4 ng/mL (> or = 4.0)
[2023-09-14 21:04] LABS: Vitamin B12 603 pg/mL (200-900)
== END 2023-09-14 09:39 | disposition home or self-care (01) ==
LOC: HO.HMGCLDS 09:38
PROVIDERS: PCP Internal Medicine; Visit Provider Internal Medicine
DX: R79.89 Other specified abnormal findings of blood chemistry (principal)
CPT/HCPCS: 36415; 82607; 82746

== ENCOUNTER 2023-12-13 07:12 | Outpatient (REF) | payer BC, SELFPAY ==
[2023-12-13 10:39] LABS: MANUAL DIFF FLAG NO
[2023-12-13 11:21] LABS: Basophils Percent Auto 0.5 % (0-2); Eosinophils Absolute Auto 0.4 X10*3/uL (0.0-0.4); Eosinophils Percent Auto 4.7 % (0-4); Hematocrit 36.8 % (42.0-52.0); Hemoglobin 11.5 g/dl (14.0-18.0); Imm Gran Abs Auto 0.03 X10*3/uL (0.00-0.03); Imm Gran Pct Auto 0.4 % (0.0-0.4); Lymphocytes Absolute Auto 1.7 X10*3/uL (1.2-4.9); Lymphocytes Percent Auto 22.7 % (20-40); Mean Corpuscular HGB Conc 31.3 g/dl (31.0-36.0); Mean Corpuscular Hemoglobin 25.1 pg (27.0-33.0); Mean Corpuscular Volume 80.3 fL (80.0-98.0); Mean Platelet Volume 9.1 fL (9.4-12.4); Monocytes Absolute Auto 0.6 X10*3/uL (0.1-1.2); Monocytes Percent Auto 8.1 % (2-11); Neutrophils Absolute Auto 4.7 x10*3/uL (2.0-8.3); Neutrophils Percent Auto 63.6 % (45-73); Platelet Count 309 X10*3/uL (160-400); Red Blood Count 4.58 X10*6/uL (4.60-5.80); Red Cell Distribution Width 16.9 % (11.0-16.0); White Blood Count 7.4 X10*3/uL (4.8-10.8)
[2023-12-13 11:46] LABS: Estimated Average Glucose 151 mg/dL; Hemoglobin A1c % 6.9 % (<6.0)
[2023-12-13 11:52] LABS: Alanine Aminotransferase 30 U/L (0-40); Albumin Level 4.1 g/dL (3.5-5.0); Alkaline Phosphatase 77 U/L (39-117); Anion Gap 13 (12-20); Aspartate Amino Transferase 31 U/L (5-37); Bilirubin Total 0.5 mg/dL (0.0-1.0); Blood Urea Nitrogen 24 mg/dL (9-16); Calcium 9.5 mg/dL (8.4-10.2); Carbon Dioxide 26 mmol/L (22-29); Chloride 103 mmol/L (96-108); Cholesterol 112 mg/dL (<200); Estimated Glomerular Filt Rate > 60; Glucose Fasting 112 mg/dL (60-99); HDL Cholesterol 43 mg/dL (>40); LDL Cholesterol Calculated 56 mg/dL (<100); Potassium 4.6 mmol/L (3.3-5.1); Sodium 137 mmol/L (135-145); Total Protein 6.9 g/dL (6.5-8.0); Triglycerides 68 mg/dL (<150)
[2023-12-13 12:07] LABS: Creatinine Urine 73.65 mg/dL; Microalbumin Urine < 5.0 mg/L
[2023-12-13 12:09] LABS: PSA,Total (Free>4and<10) 0.57 ng/mL (0.00-4.00)
[2023-12-13 12:22] LABS: Vitamin B12 595 pg/mL (200-900)
== END 2023-12-13 07:13 | disposition home or self-care (01) ==
LOC: HO.HMGCLDS 07:12
PROVIDERS: PCP Internal Medicine; Visit Provider Internal Medicine
DX: Z00.00 Encounter for general adult medical examination without abnormal findings (principal); R79.89 Other specified abnormal findings of blood chemistry; D64.9 Anemia, unspecified; E11.9 Type 2 diabetes mellitus without complications; E78.2 Mixed hyperlipidemia; Z12.5 Encounter for screening for malignant neoplasm of prostate
CPT/HCPCS: 36415; 80053; 80061; 82043; 82570; 82607; 82746; 83036; 84153; 85025

== ENCOUNTER 2023-12-20 10:09 | Outpatient (AMB) | payer BC, SELFPAY ==
[2023-12-20 10:16] VITALS: BP 116/84; PULSE 81; O2SAT 98; BMI 24.1
--- NOTE | 2023-12-20 10:16 | MHC.PC.OV ---
Vital Signs 12/20/23 10:16 Height 5 ft 7 in Weight 154 lb BMI 24.1 BP 116/84 Blood Pressure Location Lt brachial Position Sitting Pulse 81 Pulse Source Pulse Oximeter Pulse Oximetry (%) 98 Oxygen Delivery Method Room Air Intake Visit Reasons: 4M F/U nelia from 11/16/23 Intake Note: Pt is here today for 4 months follow up visit. Allergies empagliflozin [Jardiance] Adverse Reaction (Unknown, Verified 12/20/23 10:16) increased urination, candidiasis Medication List - Last Reconciled 12/20/23 by Lilo Palafox MD aspirin 81 mg PO DAILY atorvastatin 80 mg PO DAILY clotrimazole 1% 1 appl topical BID Farxiga (dapagliflozin propanediol) 10 mg PO DAILY NS fluconazole 100 mg PO DAILY lisinopril 5 mg PO DAILY metformin 850 mg PO TID metoprolol succinate ER 12.5 mg (1/2 x 25 mg) PO DAILY semaglutide (Ozempic) 0.25 mg (0.368 mL) subcut QWEEK sertraline 50 mg PO DAILY ticagrelor (Brilinta) 90 mg PO BID Tobacco use date assessed: 12/20/23 Dental Screening Dental Screen Date: 12/20/23 Did you have a dental visit in the last 12 months?: Yes Did you have a dental problem in the last 6 months where you did not have access to dental care?: No Was dental information given to patient?: Patient has dentist HPI 4M F/U nelia from 11/16/23 HPI Details Pt presents for f/u DM 2, HTN, hyperlipid,stable on meds. PFSH Medical History Lumbar radiculopathy Type 2 diabetes mellitus Hyperlipidemia Surgical History H/O colonoscopy No pertinent past surgical history Family History Father No problems noted. Mother No problems noted. Social History Housing: House Alcohol intake: never Patient Tobacco Use Status: Former Tobacco user Tobacco use type: Cigarette Cigarettes Per Day: 8 e-Cigarette/Vaping Use: Never Used service: No Current occupational status: employed Cognitive needs: No Hearing needs: No Vision needs: Yes Questionnaire PHQ-9 Over the last 2 weeks, how often have you been bothered by any of the following problems? 1. Little interest or pleasure in doing things: not at all 2. Feeling down, depressed, or hopeless: not at all 3. Trouble falling or staying asleep, or sleeping too much: not at all 4. Feeling tired or having little energy: not at all 5. Poor appetite or overeating: not at all 6. Feeling bad about yourself - or that you are a failure or have let yourself or your family down: not at all 7. Trouble concentrating on things, such as reading the newspaper or watching television: not at all 8. Moving or speaking so slowly that other people could have noticed. Or the opposite - being so fidgety or restless that you have been moving around a lot more than usual: not at all 9. Thoughts that you would be better off or of hurting yourself in some way: not at all Total score: 0 Depression Screening Interpretation: Negative Depression Screening Done: Yes Source: Developed by Drs. Drew Gutierrez, Lindsay Feliz, Tyler Chu and colleagues, with an educational cira from [employer]. Thrive Questionnaire Date Thrive assessed: 12/20/23 I am a: Patient What is your living situation today?: I have a steady place to live Within the past 12 months, did the food you bought not last and you didn't have the money to get more?: Never true Within the past 12 months, did you worry whether your food would run out before you got money to buy more?: Never true Do you have trouble paying for medicines?: No Do you have trouble getting transportation to medical appointments?: No Do you have trouble paying your heating and electricity bill?: No Do you have trouble taking care of your child, family member or friend?: No Do you have trouble with day-to-day activities such as bathing, preparing meals, shopping, managing finances, etc.?: No Are you currently unemployed and looking for a job?: No Are you interested in more education?: No Currently or been in a relationship where the following occur: I choose not to answer THRIVE Score: 0 AUDIT C Alcohol Use Questionnaire (AUDIT-C) 1. How often do you have a drink containing alcohol?: Never 3. How often do you have six or more drinks on one occasion?: Never Total Score: 0 TREVIN-7 AMB Questionnaire TREVIN-7 Date TREVIN - 7 assessed: 12/20/23 Feeling nervous, anxious, or on edge: 0 = Not at all Not being able to stop or control worryin = Not at all Worrying too much about different things: 0 = Not at all Trouble relaxin = Not at all Being so restless that it is hard to sit still: 0 = Not at all Becoming easily annoyed or irritable: 0 = Not at all Feeling afraid as if something awful might happen: 0 = Not at all Total TREVIN-7 score (0-4 normal; 5-9 mild; 10-14 moderate; 15-21 severe): 0 Source: Developed by Drs. Drew Gutierrez, Lindsay Feliz, Tyler Chu and colleagues, with an educational cira from [employer]. Review of Systems Const All systems reviewed & are unremarkable except as noted in HPI and below ENT Reports no additional complaints Card Reports no additional complaints Resp Reports no additional complaints GI Reports no additional complaints Reports no additional complaints Physical exam (Primary Care) Vital Signs: Last Vital Signs Pulse 81 12/20/23 10:16 BP 116/84 12/20/23 10:16 Pulse Ox 98 12/20/23 10:16 Oxygen Delivery Method Room Air 12/20/23 10:16 BMI result Body Mass Index 24.1 Tobacco/Smoking Status: Tobacco use Status Tobacco use date assessed 12/20/23 12/20/23 10:17 Patient Tobacco Use Status Former Tobacco user 12/20/23 10:17 Tobacco use type Cigarette 12/20/23 10:17 e-Cigarette/Vaping Use Never Used 12/20/23 10:17 PHQ-9: PHQ-9 Score PHQ-9: Total score 0 12/20/23 10:17 Depression Screening Interpretation: Negative Thrive Assessment: Date of Thrive Assessment Date Thrive assessed 12/20/23 12/20/23 10:17 Currently or been in a relationship where the following occur: I choose not to answer Const General: no acute distress HENMT Face and sinus: Yes normal facial exam Eyes General: appearance normal, both eyes and all related structures Neck Neck: Yes supple Resp Effort & Inspection: normal respiratory effort Auscultation: clear to auscultation bilaterally Cardio Rhythm: regular rhythm Heart sounds: S1 normal heart sound present and S2 normal heart sound present GI Inspection: Yes normal to inspection Palpation (GI): Soft to palpation Percussion: Yes normal to percussion Assessment and Plan Assessment & Plan (1) Mixed hyperlipidemia: Code(s): E78.2 - Mixed hyperlipidemia Plan: cont statin (2) Type 2 diabetes mellitus: Code(s): E11.9 - Type 2 diabetes mellitus without complications Plan: a1c is 6.9, ADA diet, exercise, cont meds, fu 3 months (3) Anemia: Code(s): D64.9 - Anemia, unspecified Plan: cont vit B12, monitor CBC (4) Low vitamin B12 level: Code(s): R79.89 - Other specified abnormal findings of blood chemistry (5) Anemia: Code(s): D64.9 - Anemia, unspecified (6) CAD (coronary artery disease): Comment: inf STEMI, S/P RENATA to mid RCA 07/10/22, CATH 30% stenosis prox LAD, CX, Echo EF 45-50%, 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 Panel Fast 3 Months D64.9 - Anemia, unspecified, E11.9 - Type 2 diabetes mellitus without complications, E78.2 - Mixed hyperlipidemia Complete Blood Count Auto Diff 3 Months D64.9 - Anemia, unspecified, E11.9 - Type 2 diabetes mellitus without complications, E78.2 - Mixed hyperlipidemia Hemoglobin A1c 3 Months D64.9 - Anemia, unspecified, E11.9 - Type 2 diabetes mellitus without complications, E78.2 - Mixed hyperlipidemia Lipid Panel 3 Months D64.9 - Anemia, unspecified, E11.9 - Type 2 diabetes mellitus without complications, E78.2 - Mixed hyperlipidemia Microalbumin, Random (w Creat) 3 Months D64.9 - Anemia, unspecified, E11.9 - Type 2 diabetes mellitus without complications, E78.2 - Mixed hyperlipidemia IRON PROFILE 3 Months D64.9 - Anemia, unspecified, R79.89 - Other specified abnormal findings of blood chemistry Vitamin B12 and Folate Today D64.9 - Anemia, unspecified Coding Level of Care Code Est Pt Level 4 (14914) Diagnoses Mixed hyperlipidemia E78.2 Type 2 diabetes mellitus E11.9 Anemia D64.9 Low vitamin B12 level R79.89 CAD (coronary artery disease) I25.10
== END 2023-12-20 11:14 | disposition home or self-care (01) ==
PROVIDERS: PCP Internal Medicine; Visit Provider Internal Medicine
DX: E78.2 Mixed hyperlipidemia (principal); E11.9 Type 2 diabetes mellitus without complications; D64.9 Anemia, unspecified; R79.89 Other specified abnormal findings of blood chemistry; I25.10 Atherosclerotic heart disease of native coronary artery without angina pectoris
CPT/HCPCS: 99214

== ENCOUNTER 2024-03-07 06:08 | Outpatient (REF) | payer BC, SELFPAY ==
[2024-03-07 10:13] LABS: MANUAL DIFF FLAG NO
[2024-03-07 10:20] LABS: Basophils Absolute Auto 0.1 X10*3/uL (0.0-0.2); Basophils Percent Auto 0.7 % (0-2); Eosinophils Absolute Auto 0.5 X10*3/uL (0.0-0.4); Eosinophils Percent Auto 6.5 % (0-4); Hematocrit 37.7 % (42.0-52.0); Hemoglobin 11.5 g/dl (14.0-18.0); Imm Gran Abs Auto 0.03 X10*3/uL (0.00-0.03); Imm Gran Pct Auto 0.4 % (0.0-0.4); Lymphocytes Absolute Auto 1.6 X10*3/uL (1.2-4.9); Mean Corpuscular HGB Conc 30.5 g/dl (31.0-36.0); Mean Corpuscular Hemoglobin 24.4 pg (27.0-33.0); Mean Corpuscular Volume 79.9 fL (80.0-98.0); Mean Platelet Volume 9.1 fL (9.4-12.4); Monocytes Absolute Auto 0.7 X10*3/uL (0.1-1.2); Neutrophils Absolute Auto 4.4 x10*3/uL (2.0-8.3); Neutrophils Percent Auto 60.4 % (45-73); Platelet Count 341 X10*3/uL (160-400); Red Blood Count 4.72 X10*6/uL (4.60-5.80); Red Cell Distribution Width 16.2 % (11.0-16.0); White Blood Count 7.3 X10*3/uL (4.8-10.8)
[2024-03-07 11:04] LABS: Estimated Average Glucose 148 mg/dL; Hemoglobin A1C 145.4732 umol/L; Hemoglobin A1c % 6.8 % (<6.0); Total Hemoglobin (HGBA1C) 2851.4084 umol/L
[2024-03-07 11:07] LABS: Alanine Aminotransferase 28 U/L (0-40); Albumin Level 4.1 g/dL (3.5-5.0); Alkaline Phosphatase 70 U/L (39-117); Anion Gap 10 (12-20); Aspartate Amino Transferase 29 U/L (5-37); Bilirubin Total 0.6 mg/dL (0.0-1.0); Blood Urea Nitrogen 16 mg/dL (9-16); Calcium 9.7 mg/dL (8.4-10.2); Carbon Dioxide 28 mmol/L (22-29); Chloride 102 mmol/L (96-108); Cholesterol 106 mg/dL (<200); Estimated Glomerular Filt Rate > 60; Glucose Fasting 108 mg/dL (60-99); HDL Cholesterol 42 mg/dL (>40); Iron 44 mcg/dL (45-160); LDL Cholesterol Calculated 55 mg/dL (<100); Percent Iron Saturation 15 % (15-50); Potassium 4.3 mmol/L (3.3-5.1); Sodium 136 mmol/L (135-145); Total Iron Binding Capacity 290 mcg/dL (228-428); Total Protein 7.1 g/dL (6.5-8.0); Triglycerides 45 mg/dL (<150); Unsaturated Iron Binding 246 ug/dL
[2024-03-07 11:22] LABS: Creatinine Urine 61.36 mg/dL; Microalbumin Urine < 5.0 mg/L
[2024-03-07 11:31] LABS: Folate 10.9 ng/mL (> or = 4.0); Vitamin B12 879 pg/mL (200-900)
== END 2024-03-07 06:09 | disposition home or self-care (01) ==
LOC: HO.HMGCLDS 06:08
PROVIDERS: PCP Internal Medicine; Visit Provider Internal Medicine
DX: E11.9 Type 2 diabetes mellitus without complications (principal); E78.2 Mixed hyperlipidemia; D64.9 Anemia, unspecified; R79.89 Other specified abnormal findings of blood chemistry
CPT/HCPCS: 36415; 80053; 80061; 82043; 82570; 82607; 82746; 83036; 83540; 85025

== ENCOUNTER 2024-03-14 08:04 | Outpatient (AMB) | payer BC, SELFPAY ==
[2024-03-14 08:23] VITALS: BP 112/78; PULSE 90; O2SAT 99; BMI 23.5
--- NOTE | 2024-03-14 08:23 | A.OFFPC_ITS ---
Vital Signs 03/14/24 08:23 Height 5 ft 7 in Weight 150 lb BMI 23.5 BP 112/78 Blood Pressure Location Lt brachial Position Sitting Pulse 90 Pulse Source Pulse Oximeter Pulse Oximetry (%) 99 Oxygen Delivery Method Room Air Intake Visit Reasons: Annual PE Intake Note: Pt is here today for PE. Pt states that he tested positive for Covid on Monday. Pt states that his L ear feels blocked, congestion weakness. Allergies empagliflozin [Jardiance] Adverse Reaction (Unknown, Verified 03/14/24 08:30) increased urination, candidiasis Medication List - Last Reconciled 03/14/24 by Lilo Palafox MD aspirin 81 mg PO DAILY atorvastatin 80 mg PO DAILY clotrimazole 1% 1 appl topical BID Farxiga (dapagliflozin propanediol) 10 mg PO DAILY NS fluconazole 100 mg PO DAILY lisinopril 5 mg PO DAILY metformin 850 mg PO TID metoprolol succinate ER 12.5 mg (1/2 x 25 mg) PO DAILY Ozempic (semaglutide) 0.5 mg (0.736 mL) subcut QWEEK NS sertraline 50 mg PO DAILY ticagrelor (Brilinta) 90 mg PO BID Tobacco use date assessed: 03/14/24 Dental Screening Dental Screen Date: 12/20/23 HPI Annual PE HPI Details Pt presents for PE. Pt is recovering from Covid but is feeling better. [facility] Medical History (Updated 03/14/24 @ 10:15 by Lilo Palafox MD) Lumbar radiculopathy Type 2 diabetes mellitus Hyperlipidemia Surgical History H/O colonoscopy No pertinent past surgical history Family History Father No problems noted. Mother No problems noted. Social History Housing: House Alcohol intake: never Patient Tobacco Use Status: Former Tobacco user Tobacco use type: Cigarette Cigarettes Per Day: 8 e-Cigarette/Vaping Use: Never Used service: No Current occupational status: employed Cognitive needs: No Hearing needs: No Vision needs: Yes Questionnaire PHQ-9 Over the last 2 weeks, how often have you been bothered by any of the following problems? 1. Little interest or pleasure in doing things: not at all Source: Developed by Drs. Drew Gutierrez, Lindsay Feliz, Tyler Chu and colleagues, with an educational cira from [employer]. Thrive Questionnaire Date Thrive assessed: 12/20/23 I am a: Patient What is your living situation today?: I have a steady place to live Within the past 12 months, did the food you bought not last and you didn't have the money to get more?: Never true Within the past 12 months, did you worry whether your food would run out before you got money to buy more?: Never true Do you have trouble paying for medicines?: No Do you have trouble getting transportation to medical appointments?: No Do you have trouble paying your heating and electricity bill?: No Do you have trouble taking care of your child, family member or friend?: No Do you have trouble with day-to-day activities such as bathing, preparing meals, shopping, managing finances, etc.?: No Are you currently unemployed and looking for a job?: No Are you interested in more education?: No Please select the resources that you would like help with: None Currently or been in a relationship where the following occur: I choose not to answer THRIVE Score: 0 TREVIN-7 AMB Questionnaire TREVIN-7 Date TREVIN - 7 assessed: 12/20/23 Source: Developed by Drs. Drew Gutierrez, Lindsay Feliz, Tyler Chu and colleagues, with an educational cira from [employer]. Review of Systems Const All systems reviewed & are unremarkable except as noted in HPI and below Reports no additional complaints Eyes Reports no additional complaints ENT Reports no additional complaints Card Reports no additional complaints Resp Reports no additional complaints GI Reports no additional complaints Reports no additional complaints Physical exam (Primary Care) Vital Signs: Last Vital Signs Pulse 90 03/14/24 08:23 BP 112/78 03/14/24 08:23 Pulse Ox 99 03/14/24 08:23 Oxygen Delivery Method Room Air 03/14/24 08:23 BMI result Body Mass Index 23.5 Tobacco/Smoking Status: Tobacco use Status Tobacco use date assessed 03/14/24 03/14/24 08:33 Patient Tobacco Use Status Former Tobacco user 03/14/24 08:23 Tobacco use type Cigarette 03/14/24 08:23 e-Cigarette/Vaping Use Never Used 03/14/24 08:23 Thrive Assessment: Date of Thrive Assessment Date Thrive assessed 12/20/23 03/14/24 08:23 Currently or been in a relationship where the following occur: I choose not to answer Const General: no acute distress HENMT Ears: hearing grossly normal bilaterally Face and sinus: Yes normal facial exam Mouth: Normal oral and palatal mucosa present Throat: Yes posterior oropharynx normal Eyes General: appearance normal, both eyes and all related structures Neck Neck: Yes no lymphadenopathy and Yes supple Resp Effort & Inspection: normal respiratory effort Auscultation: clear to auscultation bilaterally Cardio Rhythm: regular rhythm Heart sounds: S1 normal heart sound present and S2 normal heart sound present GI Inspection: Yes normal to inspection Palpation (GI): Soft to palpation Percussion: Yes normal to percussion Auscultation: normal bowel sounds Coding Level of Care Code Est Pt Prev Care 40-64y(01470) Diagnoses H/O colonoscopy Z98.890 Iron (Fe) deficiency anemia D50.9 CAD (coronary artery disease) I25.10 Type 2 diabetes mellitus E11.9 Mixed hyperlipidemia E78.2 Annual physical exam Z00.00 Assessment & Plan Assessment & Plan (1) H/O colonoscopy: Comment: 2014 Code(s): Z98.890 - Other specified postprocedural states Category: Surgical Plan: Patient will be referred to GI for repeat colonoscopy (2) Iron (Fe) deficiency anemia: Comment: refer to GI for W/U 02/2024 Code(s): D50.9 - Iron deficiency anemia, unspecified Category: Medical Plan: Persistent iron deficiency on aspirin and Brilinta despite taking iron supplement daily. 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 Code(s): I25.10 - Atherosclerotic heart disease of [place] coronary artery without angina pectoris Category: Medical Plan: Follow-up with the Cardiology on high dose statin, Farxiga and metoprolol (4) Type 2 diabetes mellitus: Code(s): E11.9 - Type 2 diabetes mellitus without complications Category: Medical Plan: A1c is 6.9, ADA diet increase physical activity discussed with the patient increase Ozempic to 0.5 mg continue metformin and Farxiga follow-up in 3 months (5) Mixed hyperlipidemia: Code(s): E78.2 - Mixed hyperlipidemia Category: Medical Plan: Continue statin (6) Annual physical exam: Code(s): Z00.00 - Encounter for general adult medical examination without abnormal findings Category: Medical Plan: Well-balanced diet regular physical activity discussed with the patient Orders: Orders Lipid Panel 3 Months E11.9 - Type 2 diabetes mellitus without complications, E78.2 - Mixed hyperlipidemia Comprehensive [place]. Panel Fast 3 Months E11.9 - Type 2 diabetes mellitus without complications, E78.2 - Mixed hyperlipidemia Microalbumin, Random (w Creat) 3 Months E11.9 - Type 2 diabetes mellitus without complications, E78.2 - Mixed hyperlipidemia Hemoglobin A1c 3 Months E11.9 - Type 2 diabetes mellitus without complications, E78.2 - Mixed hyperlipidemia Referrals Gastroenterology Referral D50.9 - Iron deficiency anemia, unspecified, Z98.890 - Other specified postprocedural states Medications: New Ozempic (semaglutide) 0.5 mg (0.736 mL) subcut QWEEK 9 mL 3RF NS Discontinued semaglutide (Ozempic) Discontinued Reason: Doctor's Order 0.25 mg (0.368 mL) subcut QWEEK 9 mL 2RF
== END 2024-03-14 08:55 | disposition home or self-care (01) ==
PROVIDERS: PCP Internal Medicine; Visit Provider Internal Medicine
DX: Z00.00 Encounter for general adult medical examination without abnormal findings (principal); E11.69 Type 2 diabetes mellitus with other specified complication; Z98.890 Other specified postprocedural states; D50.9 Iron deficiency anemia, unspecified; I25.10 Atherosclerotic heart disease of native coronary artery without angina pectoris; E78.2 Mixed hyperlipidemia

== ENCOUNTER → 2024-03-14 08:04 | Outpatient (BNVA) | payer BC, SELFPAY | PROVIDERS: PCP Internal Medicine; Visit Provider Internal Medicine ==

== ENCOUNTER 2024-06-13 07:18 | Outpatient (REF) | payer BC, SELFPAY ==
[2024-06-13 10:35] LABS: Estimated Average Glucose 160 mg/dL; Hemoglobin A1c % 7.2 % (<6.0); Total Hemoglobin (HGBA1C) 2895.0336 umol/L
[2024-06-13 10:51] LABS: Alanine Aminotransferase 36 U/L (0-40); Albumin Level 4.1 g/dL (3.5-5.0); Alkaline Phosphatase 62 U/L (39-117); Anion Gap 10 (12-20); Aspartate Amino Transferase 42 U/L (5-37); Bilirubin Total 0.6 mg/dL (0.0-1.0); Blood Urea Nitrogen 23 mg/dL (9-16); Calcium 9.5 mg/dL (8.4-10.2); Carbon Dioxide 27 mmol/L (22-29); Chloride 103 mmol/L (96-108); Cholesterol 110 mg/dL (<200); Estimated Glomerular Filt Rate > 60; Glucose Fasting 91 mg/dL (60-99); HDL Cholesterol 46 mg/dL (>40); LDL Cholesterol Calculated 56 mg/dL (<100); Sodium 136 mmol/L (135-145); Total Protein 7.3 g/dL (6.5-8.0); Triglycerides 42 mg/dL (<150)
[2024-06-13 11:02] LABS: Creatinine Urine 32.43 mg/dL; Microalbumin Urine < 5.0 mg/L
== END 2024-06-13 07:19 | disposition home or self-care (01) ==
LOC: HO.HMGCLDS 07:18
PROVIDERS: PCP Internal Medicine; Visit Provider Internal Medicine
DX: E78.2 Mixed hyperlipidemia (principal); E11.9 Type 2 diabetes mellitus without complications
CPT/HCPCS: 36415; 80053; 80061; 82043; 82570; 83036

== ENCOUNTER 2024-06-18 09:09 | Outpatient (AMB) | payer BC, SELFPAY ==
--- NOTE | 2024-06-18 09:28 | A.OFFPC_ITS ---
Vital Signs 06/18/24 09:29 Height 5 ft 7 in Weight 153 lb BMI 24.0 BP 108/64 Blood Pressure Location Lt brachial Position Sitting Pulse 66 Pulse Source Pulse Oximeter Temp 97.8 F Temp Source Oral Pulse Oximetry (%) 98 Oxygen Delivery Method Room Air Intake Visit Reasons: 3 months follow up Intake Note: Pt is here today for 3 months follow up visit on labs. Allergies empagliflozin [Jardiance] Adverse Reaction (Unknown, Verified 06/18/24 09:33) increased urination, candidiasis Medication List - Last Reconciled 06/18/24 by Lilo Palafox MD aspirin 81 mg PO DAILY atorvastatin 80 mg PO DAILY clotrimazole 1% 1 appl topical BID Farxiga (dapagliflozin propanediol) 10 mg PO DAILY NS fluconazole 100 mg PO DAILY lisinopril 5 mg PO DAILY metformin 850 mg PO TID metoprolol succinate ER 12.5 mg (1/2 x 25 mg) PO DAILY Ozempic (semaglutide) 1 mg (0.75 mL) subcut QWEEK NS pen needle, diabetic As directed-for use with Ozempic pen PRN sertraline 50 mg PO DAILY ticagrelor (Brilinta) 90 mg PO BID Tobacco use date assessed: 06/18/24 Fall risk assessment: No Falls in past year Last assessed Fall Risk: 06/18/24 Dental Screening Dental Screen Date: 06/18/24 Did you have a dental visit in the last 12 months?: Yes Did you have a dental problem in the last 6 months where you did not have access to dental care?: No Was dental information given to patient?: Patient has dentist HPI 3 months follow up HPI Details Pt presents for f/u DM2, hyperlipidemia heart failure with recovered ejection fraction, stable on current medications PFSH Medical History Lumbar radiculopathy Type 2 diabetes mellitus Hyperlipidemia Surgical History H/O colonoscopy No pertinent past surgical history Family History Father No problems noted. Mother No problems noted. Social History Housing: House Alcohol intake: never Patient Tobacco Use Status: Former Tobacco user Tobacco use type: Cigarette Cigarettes Per Day: 8 e-Cigarette/Vaping Use: Never Used service: No Current occupational status: employed Cognitive needs: No Hearing needs: No Vision needs: Yes Questionnaire PHQ-9 Over the last 2 weeks, how often have you been bothered by any of the following problems? 1. Little interest or pleasure in doing things: not at all 2. Feeling down, depressed, or hopeless: not at all 3. Trouble falling or staying asleep, or sleeping too much: not at all 4. Feeling tired or having little energy: not at all 5. Poor appetite or overeating: not at all 6. Feeling bad about yourself - or that you are a failure or have let yourself or your family down: not at all 7. Trouble concentrating on things, such as reading the newspaper or watching television: not at all 8. Moving or speaking so slowly that other people could have noticed. Or the opposite - being so fidgety or restless that you have been moving around a lot more than usual: not at all 9. Thoughts that you would be better off or of hurting yourself in some way: not at all Total score: 0 Depression Screening Interpretation: Negative Depression Screening Done: Yes 45564 - PHQ-9 Billing: Yes Source: Developed by Drs. Drew Gutierrez, Lindsay Feliz, Tyler Chu and colleagues, with an educational cira from [employer]. Thrive Questionnaire Date Thrive assessed: 06/18/24 I am a: Patient What is your living situation today?: I have a steady place to live Within the past 12 months, did the food you bought not last and you didn't have the money to get more?: I choose not to answer this question Within the past 12 months, did you worry whether your food would run out before you got money to buy more?: I choose not to answer this question Do you have trouble paying for medicines?: No Do you have trouble getting transportation to medical appointments?: No Do you have trouble paying your heating and electricity bill?: No Do you have trouble taking care of your child, family member or friend?: I choose not to answer this question Do you have trouble with day-to-day activities such as bathing, preparing meals, shopping, managing finances, etc.?: I choose not to answer this question Are you currently unemployed and looking for a job?: No Are you interested in more education?: I choose not to answer this question Please select the resources that you would like help with: None Currently or been in a relationship where the following occur: I choose not to answer THRIVE Score: 0 AUDIT C Alcohol Use Questionnaire (AUDIT-C) 1. How often do you have a drink containing alcohol?: Never 3. How often do you have six or more drinks on one occasion?: Never Total Score: 0 TREVIN-7 AMB Questionnaire TREVIN-7 Date TREVIN - 7 assessed: 06/18/24 Feeling nervous, anxious, or on edge: 0 = Not at all Not being able to stop or control worryin = Not at all Worrying too much about different things: 0 = Not at all Trouble relaxin = Not at all Being so restless that it is hard to sit still: 0 = Not at all Becoming easily annoyed or irritable: 0 = Not at all Feeling afraid as if something awful might happen: 0 = Not at all Total TREVIN-7 score (0-4 normal; 5-9 mild; 10-14 moderate; 15-21 severe): 0 Source: Developed by Drs. Drew Gutierrez, Lindsay Feliz, Tyler Chu and colleagues, with an educational cira from [employer]. TREVIN-7 Assessment Billing TREIVN-7 Assessment Tool: TREVIN-7 Assessment 25240 Review of Systems Const All systems reviewed & are unremarkable except as noted in HPI and below ENT Reports no additional complaints Card Reports no additional complaints Resp Reports no additional complaints GI Reports no additional complaints Reports no additional complaints Physical exam (Primary Care) Vital Signs: Last Vital Signs Temp 97.8 F 06/18/24 09:29 Pulse 66 06/18/24 09:29 BP 108/64 06/18/24 09:29 Pulse Ox 98 06/18/24 09:29 Oxygen Delivery Method Room Air 06/18/24 09:29 BMI result Body Mass Index 24.0 Tobacco/Smoking Status: Tobacco use Status Tobacco use date assessed 06/18/24 06/18/24 09:39 Patient Tobacco Use Status Former Tobacco user 06/18/24 09:29 Tobacco use type Cigarette 06/18/24 09:29 e-Cigarette/Vaping Use Never Used 06/18/24 09:29 PHQ-9: PHQ-9 Score PHQ-9: Total score 0 06/18/24 09:39 Depression Screening Interpretation: Negative Thrive Assessment: Date of Thrive Assessment Date Thrive assessed 06/18/24 06/18/24 09:39 Currently or been in a relationship where the following occur: I choose not to answer Const General: no acute distress HENMT Face and sinus: Yes normal facial exam Eyes General: appearance normal, both eyes and all related structures Resp Effort & Inspection: normal respiratory effort Auscultation: clear to auscultation bilaterally Cardio Rhythm: regular rhythm Heart sounds: S1 normal heart sound present and S2 normal heart sound present GI Inspection: Yes normal to inspection Palpation (GI): Soft to palpation Percussion: Yes normal to percussion Auscultation: normal bowel sounds Coding Level of Care Code Est Pt Level 4 (39270) Complex EM visit Add On G2211 Diagnoses Mixed hyperlipidemia E78.2 Type 2 diabetes mellitus E11.9 CAD (coronary artery disease) I25.10 Low vitamin B12 level R79.89 Iron (Fe) deficiency anemia D50.9 Additional Codes TREVIN-7 Assessment Billing - TREVIN-7 Assessment Tool: TREVIN-7 Assessment 23480 ([id number]) PHQ-9 - 05281 - PHQ-9 Billing: Yes ([id number]) Assessment & Plan Assessment & Plan (1) Mixed hyperlipidemia: Code(s): E78.2 - Mixed hyperlipidemia Category: Medical Plan: Continue statin (2) Type 2 diabetes mellitus: Comment: Patient could not tolerate more than 1500 mg of metformin because of diarrhea Code(s): E11.9 - Type 2 diabetes mellitus without complications Category: Medical Plan: A1c is 7.1, ADA diet increase exercise discussed with the patient. Continue metformin Farxiga and increase Ozempic to 1 mg weekly. Patient will start monitoring his blood glucose using Markus 3 sensor to detect hypoglycemia (3) CAD (coronary artery disease): Comment: inf STEMI, S/P RENATA to mid RCA 07/10/22, CATH 30% stenosis prox LAD, CX, Echo EF 45-50%, AKINESIS DISEASE IN BASAL MID INFERIOR WALL Code(s): I25.10 - Atherosclerotic heart disease of the [place] coronary artery without angina pectoris Category: Medical Plan: Continue current medications follow-up with the Cardiology (4) Low vitamin B12 level: Comment: RESOLVED ON ORAL SUPPLEMENT Code(s): R79.89 - Other specified abnormal findings of blood chemistry Category: Medical Plan: Continue vitamin B12 (5) Iron (Fe) deficiency anemia: Comment: refer to GI for W/U 02/2024 Code(s): D50.9 - Iron deficiency anemia, unspecified Category: Medical Plan: Monitor iron and CBC Orders: Orders Comprehensive [place]. Panel Fast 3 Months D50.9 - Iron deficiency anemia, unspecified, E11.9 - Type 2 diabetes mellitus without complications, E78.2 - Mixed hyperlipidemia, I25.10 - Atherosclerotic heart disease of [place] coronary artery without angina pectoris, R79.89 - Other specified abnormal findings of blood chemistry Lipid Panel 3 Months D50.9 - Iron deficiency anemia, unspecified, E11.9 - Type 2 diabetes mellitus without complications, E78.2 - Mixed hyperlipidemia, I25.10 - Atherosclerotic heart disease of [place] coronary artery without angina pectoris, R79.89 - Other specified abnormal findings of blood chemistry Microalbumin, Random (w Creat) 3 Months D50.9 - Iron deficiency anemia, unspecified, E11.9 - Type 2 diabetes mellitus without complications, E78.2 - Mixed hyperlipidemia, I25.10 - Atherosclerotic heart disease of [place] coronary artery without angina pectoris, R79.89 - Other specified abnormal findings of blood chemistry Vitamin B12 and Folate 3 Months D50.9 - Iron deficiency anemia, unspecified, R79.89 - Other specified abnormal findings of blood chemistry Hemoglobin A1c 3 Months D50.9 - Iron deficiency anemia, unspecified, E11.9 - Type 2 diabetes mellitus without complications, E78.2 - Mixed hyperlipidemia, I25.10 - Atherosclerotic heart disease of [place] coronary artery without angina pectoris, R79.89 - Other specified abnormal findings of blood chemistry IRON PROFILE 3 Months D50.9 - Iron deficiency anemia, unspecified, R79.89 - Other specified abnormal findings of blood chemistry Medications: New meloxicam 15 mg PO DAILY 30 tabs 1RF FreeStyle Markus 14 Day Sensor (flash glucose sensor) As directed 2 ea 3RF NS Ozempic (semaglutide) 1 mg (0.75 mL) subcut QWEEK 9 mL 2RF NS Refilled sertraline 50 mg PO DAILY 90 tabs 3RF Discontinued fluconazole Discontinued Reason: Doctor's Order 100 mg PO DAILY 7 tabs 0RF Ozempic (semaglutide) Discontinued Reason: Doctor's Order 0.5 mg (0.736 mL) subcut QWEEK 9 mL 3RF NS
[2024-06-18 09:29] VITALS: BP 108/64; PULSE 66; TEMP 36.6; O2SAT 98; BMI 24.0
--- OUTSIDE RECORDS SUMMARY | 2024-06-18 09:34 | XMS_ITS | Clinical Summary ---
Author Organization [address] [place] [address] [address] [place] [address] Phone Care Team Providers Care Network Security Engineer Name Role Phone Lilo Palafox MD Primary Care Provider [phone] Allergies No known active allergies Medications Medication Sig Dispensed Refills Start Date End Date Status lisinopriL (PRINIVIL,ZESTRIL) 2.5 mg tablet Take 1 tablet (2.5 mg total) by mouth 1 (one) time each day. 90 each 3 03/29/2024 Active aspirin 81 mg EC tablet TAKE ONE TABLET BY MOUTH ONCE DAILY 90 tablet 3 04/02/2024 Active atorvastatin (LIPITOR) 80 mg tablet Take 1 Tablet by mouth at bedtime. Active CYANOCOBALAMIN, VITAMIN B-12, ORAL Take by mouth daily. Active dapagliflozin propanediol (FARXIGA) 10 mg tablet Take 1 Tablet by mouth daily. Active lisinopriL (PRINIVIL,ZESTRIL) 5 mg tablet Take 0.5 Tablets by mouth at bedtime. 04/04/2023 Active metFORMIN (GLUCOPHAGE) 850 mg tablet Take 1 Tablet by mouth 2 times daily (with meals). Active metoprolol succinate (TOPROL-XL) 25 mg 24 hr tablet Take 0.5 Tablets by mouth daily. Active semaglutide (Ozempic) 0.25 mg or 0.5 mg (2 mg/3 mL) injection pen Inject into the skin once a week. Active Active Problems Problem Noted Date Diagnosed Date Coronary artery disease 02/10/2024 Overview (04/02/2024): Inferior STEMI 06/2022 receiving a RENATA to the RCA; there was also nonobstructive disease in the mid LAD. Last Assessment & Plan: Patient offers no symptoms reminiscent of previous anginal symptoms. Due to the sense of weakness and fatigue, repeat stress echocardiogram completed 08/24/2023 showed no evidence of ischemia at a good workload. As such, there is no indication to repeat an ischemic workup at this time. We will not make any changes to his current medical therapy; continue beta-blockade, statin, and daily ASA. Patient advised to seek emergency medical attention by calling 911 if they were to develop severe dyspnea, chest pain that did not resolve with rest, or if they were to faint. History of ST elevation myocardial infarction (S [place]) 02/09/2024 Snoring 02/09/2024 Atypical chest pain 08/07/2023 Chronic fatigue 08/07/2023 Overview (04/02/2024): Last Assessment & Plan: Given the patient's history of snoring, he is willing to undergo a sleep study for further evaluation of underlying JOHN. We discussed the potential long-term implications of untreated sleep apnea as it relates to his cardiovascular health. No recent TSH completed recent labs; he is willing to have this drawn for further evaluation of potential thyroid dysregulation as contributory. Ischemic cardiomyopathy 08/20/2022 Overview (04/02/2024): With LVEF 45-50% Last Assessment & Plan: The patient's most recent echocardiogram was completed in June 2022 revealing an EF of 45 to 50%. Global EF noted during stress echocardiogram 08/2023 was estimated at 50 to 60%. He presents today reporting a long history of chronic fatigue and weakness but offers no symptoms concerning for overt heart failure; he appears euvolemic on exam. Given his fatigue and weakness, to be prudent we will update his echocardiogram for further evaluation of possible decline in cardiac function or other structural issue, suspect that this is much less likely to be causative. Continue guideline directed medical therapies for heart failure including beta-blockade, NIKA I, and SGLT2 inhibitor. Recent labs from PCP's office show normal renal function and electrolytes. I've asked the patient to call if they develop worsening symptoms of heart failure such as increased shortness of breath, new or worsening cough, increased swelling in the legs or ankles, or weight gain of more than 2 pounds in one day or 4 pounds in one week. Mixed hyperlipidemia 08/20/2022 Overview (04/02/2024): Last Assessment & Plan: LDL goal for this patient was a history of coronary artery disease as well as diabetes is less than 55. Most recent lipid panel completed November 2023 reveals an LDL of 56. Continue atorvastatin 80 mg daily as this is quite close to goal. I have reviewed with the patient the importance of a heart healthy lifestyle which includes eating a low-fat low-salt diet, getting regular exercise, maintaining a healthy weight, not smoking, and following up with routine medical care. ST elevation myocardial infa rction involving right coronary artery 08/20/2022 Encounters Date Type Department Care Team Description 05/06/2024 2:00 PM EST Ancillary Procedure [facility] [address] [address] Ischemic cardiomyopathy; Chronic fatigue 03/29/2024 Telephone [facility] [address] [address] Marlon Guzmán MD Med Refill from Last 3 Months Social History Tobacco Use Types Packs/Day Years Used Date Smoking Tobacco: Never Smokeless Tobacco: Never Alcohol Use Standard Drinks/Week Comments Never 0 (1 standard drink = 0.6 oz pur e alcohol) Sex and Gender Information Value Date Recorded Sex Assigned at Not on file Gender Identity Not on file Sexual Orientation Not on file Job Start Date Occupation Industry Not on file Not on file Not on file Obstetrics History Last Filed Vital Signs Vital Sign Reading Time Taken Comments Blood Pressure 119/73 05/06/2024 2:40 PM EST Pulse 67 02/09/2024 8:42 AM EDT Temperature - - Respiratory Rate - - Oxygen Saturation - - Inhaled Oxygen Concentration - - Weight 70.8 kg (156 lb) 05/06/2024 2:40 PM EST Height 167.6 cm (5' 6 ) 05/06/2024 2:40 PM EST Body Mass Index 25.18 05/06/2024 2:40 PM EST Plan of Treatment Health Maintenance Due Date Last Done Comments DTaP,Tdap,and Td Vaccines (1 - Tdap) 1979 Zoster Vaccines (1 of 2) 2010 RSV Immunization Patients 60 + Years Old (1 - Risk 60-74 years 1-dose series) 2020 Cholesterol Screening (Lipid Panel) 2023 Colorectal Cancer Screening: Colonoscopy 2023 Depression Screening 2023 HIV Screening 2023 Hepatitis C Screening 2023 Social Influencers of Health Screening 2023 COVID-19 Vaccine ( - 2023-2 5 season) 2024 Influenza Vaccine (#1) 2024 Hypertension/CHF/CAD Annual BMP Blood Test 02/29/2024 HIB Vaccines Aged Out No longer eligi ble based on patient's age to complete this topic HPV Vaccines Aged Out No longer eligi ble based on patient's age to complete this topic Hepatitis A Vaccines Aged Out No long er eligible based on patient's age to complete this topic Hepatitis B Vaccines Aged Out No long er eligible based on patient's age to complete this topic IPV Vaccines Aged Out No longer eligi ble based on patient's age to complete this topic MMR Vaccines Aged Out No longer eligi ble based on patient's age to complete this topic Meningococcal ACWY Vaccine Aged Out N o longer eligible based on patient's age to complete this topic Pneumococcal Vaccine: Pediat rics (0 to 5 Years) and At-Risk Patients (6 to 64 Years) Aged Out No longer eligible b ased on patient's age to complete this topic RSV Immunization Patients Un alma 20 months Aged Out No longer eligible b ased on patient's age to complete this topic Varicella Vaccines Aged Out No longer eligible based on patient's age to complete this topic Procedures Procedure Name Priority Date/Time Associated Diagnosis Comments TRANSTHORACIC ECHOCARDIOGRAM (TTE) COMPLETE Routine 05/06/2024 2:40 PM EST Ischemic cardiomyopathy Chronic fatigue from Last 3 Months Results * (ABNORMAL) TRANSTHORACIC ECHOCARDIOGRAM (TTE) COMPLETE (05/06/2024 2:40 PM EST) LV EDV (A2C) 52 mL CV PACS LV EDV (A4C) 80 mL CV PACS LV Diastolic Volume (BP) 66 62 - 150 mL CV PACS LV ESV (A2C) 28 mL CV PACS LV ESV (A4C) 39 mL CV PACS LV Systolic Volume (BP) 35 21 - 61 mL CV PACS IVSD 1.1(A) 0.6 - 1.0 cm CV PACS LVIDD 4.7 4.2 - 5.8 cm CV PACS LVIDS 3.5 2.5 - 4.0 cm CV PACS LVOT Diameter 1.9 cm CV PACS LVOT Mean Gregory 0.6 m/s CV PACS LVOT Mean Grad 2 mmHg CV PACS LVOT Mean Grad 2 mmHg CV PACS LVOT Peak VTI 19.1 cm CV PACS LVOT Peak Gregory 1.0 m/s CV PACS LVOT Peak Gregory 1.0 m/s CV PACS LVOT Peak Gradient 4 mmHg CV PACS LVPWD 1.1(A) 0.6 - 1.0 cm CV PACS MV E' Tissue Velocity Lateral 7 cm/s CV PACS MV E' Tissue Velocity Septal 7 cm/s CV PACS Ejection Fraction (A2C) 45 % CV PACS Ejection Fraction (A4C) 51 % CV PACS Ejection Fraction (BP) 48 % CV PACS LVOT Area 2.8 cm2 CV PACS LVOT Stroke Volume 54 mL CV PACS Left Atrium Minor Rozel 4.4 cm CV PACS Left Atrium Major Rozel 4.1 cm CV PACS LA Area Sys (A2C) 11 cm2 CV PACS LA Area Sys (A4C) 9 cm2 CV PACS LA Volume (BP) 20 mL CV PACS LA Size 3.9 cm CV PACS RA Area 11.9 cm2 CV PACS RA 2D Volume 25 mL CV PACS AV Mean Gradient 3 mmHg CV PACS AV Mean Gradient 3 mmHg CV PACS Ao VTI 23.9 cm CV PACS AV Peak Gregory 1.2 m/s CV PACS AV Peak Gradient 6 mmHg CV PACS AV Area Continuity Equation 2.3 cm2 CV PACS AV Area Peak Velocity 2.3 cm2 CV PACS Aortic Arch 2.3 cm CV PACS Ascending Aorta 3.8 cm CV PACS Aortic Sinus Valsalva 3.7 cm CV PACS MV Deceleration Harlan 2.6 m/s2 CV PACS E Wave Deceleration Time 206 119 - 242 ms CV PACS MV PHT 61 ms CV PACS MV Peak A Gregory 0.73 m/s CV PACS MV Peak E Gregory 0.53 m/s CV PACS MV Mean Gradient 1 mmHg CV PACS MV Mean Gradient 1 mmHg CV PACS MV Mean Gradient 1 mmHg CV PACS MV Mean Gradient 1 mmHg CV PACS MV VTI 21.1 cm CV PACS Mitral Valve Max Velocity 0.9 m/s CV PACS MV Peak Gradient 3 mmHg CV PACS MV Area PHT 3.6 cm2 CV PACS MV Area Continuity Equation 2.6 cm2 CV PACS PV Acceleration Time 190 ms CV PACS PV Mean Gradient 1 mmHg CV PACS PV VTI 14.0 cm CV PACS PV Peak Velocity 0.6 m/s CV PACS PV Peak Gradient 2 mmHg CV PACS RV Diastolic Basal Dimension 3.2 2.5 - 4.1 cm CV PACS RV S' 8 cm/s CV PACS TAPSE 22 mm CV PACS TR Peak Velocity 2.21 m/s CV PACS TR Peak Gradient 20 mmHg CV PACS LV ESV Index (A4C) 22 mL/m2 CV PACS LV EDV Index (A4C) 44 mL/m2 CV PACS E/E' Ratio Septal 8 CV PACS E/E' Ratio Averaged 8 CV PACS LVOT Stroke Index 30 mL/m2 CV PACS LA Dimension Index 2D 2.2 cm/m2 CV PACS Relative Wall Thickness ratio 0.47 CV PACS LVOT:AV VTI Index 0.80 CV PACS FS 26 % CV PACS LV Mass 2D 188 g CV PACS Ascending Aorta Index 2.11 cm/m2 CV PACS MV VTI:LVOT VTI ratio 1.1 CV PACS LVOT flow 170 mL/s CV PACS RA 2D Volume Index 14 mL/m2 CV PACS WINSOME Index (VTI) 1.26 cm2/m2 CV PACS WINSOME Index (Pk Gregory) 1.28 cm2/m2 CV PACS LVIDD Index 2.61 cm/m2 CV PACS LVIDS Index 1.94 cm/m2 CV PACS E/A Ratio 0.7 CV PACS E/E' Ratio Lateral 8 CV PACS LV Systolic Volume Index (BP) 19 mL/m2 CV PACS LV Diastolic Volume Index (BP) 37 mL/m2 CV PACS LA Volume Index (BP) 11 mL/m2 CV PACS LV Mass Index 2D 104 g/m2 CV PACS LV EDV Index (A2C) 29 mL/m2 CV PACS LV ESV Index (A2C) 16 mL/m2 CV PACS BSA 1.82 m2 CV PACS Anatomical Region Laterality Modality Ultrasound Narrative 05/07/2024 10:30 AM EST ?Left ventricle cavity size is normal. Left ventricular systolic function is low normal with an ejection fraction of 50-55%. ?No regional LV wall motion abnormalities noted. ?Left ventricle mild concentric hypertrophy. ?Right ventricle cavity is normal. Right ventricular systolic function is normal. ?Aortic valve leaflets are mildly thickened. No other significant valve abnormalities ?No significant change from stress echo from 08/24/2023 Left Ventricle Left ventricle cavity size is normal. There is mild concentric hypertrophy. Systolic function is low normal with an ejection fraction of 50-55%. There are no regional LV wall motion abnormalities. There is no diastolic dysfunction. Right Ventricle Right ventricle cavity appears normal. Systolic function is normal. Left Atrium Left atrium cavity size is normal. Right Atrium Right atrium cavity is normal. IVC/SVC Inferior vena cava structure is normal. RA pressures is estimated to be 3 mmHg (IVC diameter <21 mm and decreases >50% during inspiration). Mitral Valve The leaflets are mildly thickened. There is trace regurgitation. There is no evidence of mitral valve stenosis. Tricuspid Valve Tricuspid valve structure is normal. There is trace regurgitation. The right ventricular systolic pressure is normal. Aortic Valve The aortic valve is trileaflet. The leaflets are mildly thickened. There is no regurgitation or stenosis. Pulmonic Valve There is no pulmonic valve regurgitation. Ascending Aorta The aorta appears normal in size. Pericardium Pericardium appears normal. There is no pericardial effusion. Study Details Overall the study quality was adequate. Mary Mcdaniel NP CV ECHO PROCE MONICA from Last 3 Months Care Teams Network Security Engineer Relationship Specialty Start Date End Date Lilo Palfaox MD PCP - General 08/20/22
== END 2024-06-18 10:16 | disposition home or self-care (01) ==
PROVIDERS: PCP Internal Medicine; Visit Provider Internal Medicine
DX: E78.2 Mixed hyperlipidemia (principal); E11.9 Type 2 diabetes mellitus without complications; I25.10 Atherosclerotic heart disease of native coronary artery without angina pectoris; R79.89 Other specified abnormal findings of blood chemistry; D50.9 Iron deficiency anemia, unspecified

== ENCOUNTER → 2024-06-18 09:09 | Outpatient (BNVA) | payer BC, SELFPAY | PROVIDERS: PCP Internal Medicine; Visit Provider Internal Medicine | DX: E11.9 Type 2 diabetes mellitus without complications (principal); E78.2 Mixed hyperlipidemia; I25.10 Atherosclerotic heart disease of native coronary artery without angina pectoris; E53.8 Deficiency of other specified B group vitamins; D50.9 Iron deficiency anemia, unspecified; Z79.84 Long term (current) use of oral hypoglycemic drugs; Z79.899 Other long term (current) drug therapy | CPT/HCPCS: 96127 ==

== ENCOUNTER 2024-10-17 09:57 | Outpatient (REF) | payer BC, SELFPAY ==
--- OUTSIDE RECORDS SUMMARY | 2024-10-17 10:19 | XMS_ITS | Clinical Summary ---
Author Organization [address] [place] [address] Address [address] [place] [address] Phone Care Team Providers Care Chief Recordist Name Role Phone Lilo Palafox MD Primary Care Provider [phone] Allergies No known active allergies Medications lisinopriL (PRINIVIL,ZESTRI L) 2.5 mg tablet Take 1 tablet (2.5 [...] 1 Tablet by mouth daily. Active lisinopriL (PRINIVIL,ZESTRI L) 5 mg tablet Take 0.5 Tablets by [...] myocardial infa rction involving right coronary artery ([facility] V24, [facility] V28) 08/20/2022 Social History Tobacco Use Types Packs/Day Years Used Date Smoking Tobacco: Never Smokeless Tobacco: Never Alcohol Use Standard Drinks/Week Comments Never 0 (1 standard drink = 0.6 oz pur e alcohol) Sex and Gender Information Value Date Recorded Sex Assigned at Not on file Legal Sex Male 8:34 PM EST Gender Identity Not on file Sexual Orientation Not on file Obstetrics History Last Filed [...] DTaP,Tdap,and Td Vaccines (1 - Tdap) 1979 Pneumococcal Vaccine: 50+ Ye ars (1 of 1 - PCV) 2010 Zoster Vaccines (1 of 2) 2010 RSV Immunization Adult Patie nts (1 - Risk 60-74 years 1-dose series) 2020 Cholesterol Screening (Lipid Panel) 2023 Colorectal Cancer Screening: Colonoscopy 2023 Depression Screening 2023 HIV Screening 2023 Hepatitis C Screening 2023 Social Influencers of Health Screening 2023 COVID-19 Vaccine ( - 2023-2 5 season) 2024 Hypertension/CHF/CAD Annual BMP Blood Test 02/29/2024 Influenza Vaccine (Season Ended) 2025 HIB Vaccines Aged Out No longer eligi [...] patient's age to complete this topic Meningococcal B Vaccine Aged Out No l onger eligible based on patient's age to complete [...] on patient's age to complete this topic Insurance [facility] Care Teams Chief Recordist Relationship Specialty Start Date End Date Lilo Palafox MD PCP - General 08/20/22
[2024-10-17 13:59] LABS: Estimated Average Glucose 171 mg/dL; Hemoglobin A1c % 7.6 % (<6.0)
[2024-10-17 14:05] LABS: Alanine Aminotransferase 32 U/L (0-40); Albumin Level 4.4 g/dL (3.5-5.0); Alkaline Phosphatase 62 U/L (39-117); Anion Gap 13 (12-20); Aspartate Amino Transferase 38 U/L (5-37); Bilirubin Total 0.6 mg/dL (0.0-1.0); Blood Urea Nitrogen 15 mg/dL (9-16); Calcium 9.5 mg/dL (8.4-10.2); Carbon Dioxide 28 mmol/L (22-29); Chloride 102 mmol/L (96-108); Cholesterol 117 mg/dL (<200); Estimated Glomerular Filt Rate > 60; Glucose Fasting 105 mg/dL (60-99); HDL Cholesterol 44 mg/dL (>40); Iron 38 mcg/dL (45-160); LDL Cholesterol Calculated 61 mg/dL (<100); Percent Iron Saturation 12 % (15-50); Potassium 4.8 mmol/L (3.3-5.1); Sodium 138 mmol/L (135-145); Total Iron Binding Capacity 306 mcg/dL (228-428); Total Protein 7.4 g/dL (6.5-8.0); Triglycerides 64 mg/dL (<150); Unsaturated Iron Binding 268 ug/dL
[2024-10-17 14:21] LABS: Creatinine Urine 44.31 mg/dL; Microalbumin Urine < 5.0 mg/L
[2024-10-17 14:30] LABS: Folate 14.6 ng/mL (> or = 4.0); Vitamin B12 1237 pg/mL (200-900)
== END 2024-10-17 09:58 | disposition home or self-care (01) ==
LOC: HO.HMGCLDS 09:57
PROVIDERS: PCP Internal Medicine; Visit Provider Internal Medicine
DX: E11.9 Type 2 diabetes mellitus without complications (principal); E78.2 Mixed hyperlipidemia; I25.10 Atherosclerotic heart disease of native coronary artery without angina pectoris; R79.89 Other specified abnormal findings of blood chemistry; D50.9 Iron deficiency anemia, unspecified
CPT/HCPCS: 36415; 80053; 80061; 82043; 82570; 82607; 82746; 83036; 83540

== ENCOUNTER 2024-10-22 09:18 | Outpatient (AMB) | payer BC, SELFPAY ==
[2024-10-22 09:23] VITALS: BP 110/68; PULSE 71; RESP 18; TEMP 36.8; O2SAT 98; BMI 24.9
--- NOTE | 2024-10-22 09:23 | MHC.PC.OV ---
Vital Signs 10/22/24 09:23 Height 5 ft 7 in Weight 159 lb BMI 24.9 BP 110/68 Blood Pressure Location Rt brachial Position Sitting Respiration 18 Pulse 71 Pulse Source Pulse Oximeter Temp 98.2 F Temp Source Oral Pulse Oximetry (%) 98 Oxygen Delivery Method Room Air Intake Visit Reasons: 2 months follow up Intake Note: Pt is here today for a follow up visit on labs. Allergies empagliflozin [Jardiance] Adverse Reaction (Unknown, Verified 06/18/24 09:33) increased urination, candidiasis semaglutide [From Ozempic] Adverse Reaction (Verified 10/22/24 09:48) Abdominal Pain Medication List - Last Reconciled 10/22/24 by Lilo Palafox MD aspirin 81 mg PO DAILY atorvastatin 80 mg PO DAILY clotrimazole 1% 1 appl topical BID Farxiga (dapagliflozin propanediol) 10 mg PO DAILY NS FreeStyle Markus 14 Day Sensor (flash glucose sensor) As directed NS lisinopril 5 mg PO DAILY meloxicam 15 mg PO DAILY metformin 850 mg PO TID metoprolol succinate ER 12.5 mg (1/2 x 25 mg) PO DAILY pen needle, diabetic As directed-for use with Ozempic pen PRN sertraline 50 mg PO DAILY ticagrelor (Brilinta) 90 mg PO BID Tobacco use date assessed: 10/22/24 Fall risk assessment: No Falls in past year Last assessed Fall Risk: 10/22/24 Dental Screening Dental Screen Date: 06/18/24 HPI 2 months follow up HPI Details Patient presents for the follow-up of type 2 diabetes hyperlipidemia coronary artery disease. Patient reports fasting blood glucose between 80-110 but 2 hours after meals at 160 the most. Patient has not been compliant with ADA diet. He feels he needs to eat simple carbohydrates because he is physically active at work. [facility] Medical History (Updated 10/22/24 @ 10:46 by Lilo Palafox MD) Iron (Fe) deficiency anemia CAD (coronary artery disease) Lumbar radiculopathy Type 2 diabetes mellitus Hyperlipidemia Surgical History H/O colonoscopy No pertinent past surgical history Family History Father No problems noted. Mother No problems noted. Social History Housing: House Alcohol intake: never Patient Tobacco Use Status: Former Tobacco user Tobacco use type: Cigarette Cigarettes Per Day: 8 e-Cigarette/Vaping Use: Never Used service: No Current occupational status: employed Cognitive needs: No Hearing needs: No Vision needs: Yes Questionnaire Thrive Questionnaire Date Thrive assessed: 06/18/24 I am a: Patient What is your living situation today?: I have a steady place to live Within the past 12 months, did the food you bought not last and you didn't have the money to get more?: I choose not to answer this question Within the past 12 months, did you worry whether your food would run out before you got money to buy more?: I choose not to answer this question Do you have trouble paying for medicines?: No Do you have trouble getting transportation to medical appointments?: No Do you have trouble paying your heating and electricity bill?: No Do you have trouble taking care of your child, family member or friend?: I choose not to answer this question Do you have trouble with day-to-day activities such as bathing, preparing meals, shopping, managing finances, etc.?: I choose not to answer this question Are you currently unemployed and looking for a job?: No Are you interested in more education?: I choose not to answer this question Please select the resources that you would like help with: None Currently or been in a relationship where the following occur: I choose not to answer THRIVE Score: 0 TREVIN-7 AMB Questionnaire TREVIN-7 Date TREVIN - 7 assessed: 06/18/24 Source: Developed by Drs. Drew Gutierrez, Lindsay Feliz, Tyler Chu and colleagues, with an educational cira from [employer]. Review of Systems Const All systems reviewed & are unremarkable except as noted in HPI and below ENT Reports no additional complaints Card Reports no additional complaints Resp Reports no additional complaints GI Reports no additional complaints Reports no additional complaints Physical exam (Primary Care) Vital Signs: Last Vital Signs Temp 98.2 F 10/22/24 09:23 Pulse 71 10/22/24 09:23 Resp 18 10/22/24 09:23 BP 110/68 10/22/24 09:23 Pulse Ox 98 10/22/24 09:23 Oxygen Delivery Method Room Air 10/22/24 09:23 BMI result Body Mass Index 24.9 Tobacco/Smoking Status: Tobacco use Status Tobacco use date assessed 10/22/24 10/22/24 09:36 Patient Tobacco Use Status Former Tobacco user 10/22/24 09:23 Tobacco use type Cigarette 10/22/24 09:23 e-Cigarette/Vaping Use Never Used 10/22/24 09:23 Thrive Assessment: Date of Thrive Assessment Date Thrive assessed 06/18/24 10/22/24 09:23 Currently or been in a relationship where the following occur: I choose not to answer Const General: no acute distress HENMT Head: Yes normal to inspection Neck Neck: Yes no lymphadenopathy and Yes supple Resp Effort & Inspection: normal respiratory effort Auscultation: clear to auscultation bilaterally Cardio Rhythm: regular rhythm Heart sounds: S1 normal heart sound present and S2 normal heart sound present GI Inspection: Yes normal to inspection Palpation (GI): Soft to palpation Percussion: Yes normal to percussion Auscultation: normal bowel sounds Extrem Other: Diabetic foot exam skin is intact monofilament and vibration sensation intact bilaterally Coding Level of Care Code Est Pt Level 4 (43671) Complex EM visit Add On G2211 Diagnoses Type 2 diabetes mellitus E11.9 Mixed hyperlipidemia E78.2 CAD (coronary artery disease) I25.10 Iron (Fe) deficiency anemia D50.9 Assessment & Plan Assessment & Plan (1) Type 2 diabetes mellitus: Comment: Patient could not tolerate more than 1500 mg of metformin because of diarrhea Code(s): E11.9 - Type 2 diabetes mellitus without complications Category: Medical Plan: A1c is 7.6. ADA diet increase physical activity discussed with the patient. He declined taking additional medications. 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 Cologuard negative 2023 Code(s): D50.9 - Iron deficiency anemia, unspecified Category: Medical Plan: For borderline low iron count patient was advised to take iron supplement for 2 months and repeat CBC and iron studies. He declined GI referral for the iron deficiency anemia workup Orders: Orders Hemoglobin A1c 6 Months D50.9 - Iron deficiency anemia, unspecified, E11.9 - Type 2 diabetes mellitus without complications, E78.2 - Mixed hyperlipidemia, I25.10 - Atherosclerotic heart disease of [place] coronary artery without angina pectoris Lipid Panel 6 Months D50.9 - Iron deficiency anemia, unspecified, E11.9 - Type 2 diabetes mellitus without complications, E78.2 - Mixed hyperlipidemia, I25.10 - Atherosclerotic heart disease of [place] coronary artery without angina pectoris IRON PROFILE 2 Months D50.9 - Iron deficiency anemia, unspecified, E11.9 - Type 2 diabetes mellitus without complications, E78.2 - Mixed hyperlipidemia, I25.10 - Atherosclerotic heart disease of [place] coronary artery without angina pectoris Comprehensive [place]. Panel Fast 6 Months D50.9 - Iron deficiency anemia, unspecified, E11.9 - Type 2 diabetes mellitus without complications, E78.2 - Mixed hyperlipidemia, I25.10 - Atherosclerotic heart disease of [place] coronary artery without angina pectoris Complete Blood Count Auto Diff 2 Months D50.9 - Iron deficiency anemia, unspecified, E11.9 - Type 2 diabetes mellitus without complications, E78.2 - Mixed hyperlipidemia, I25.10 - Atherosclerotic heart disease of [place] coronary artery without angina pectoris Microalbumin, Random (w Creat) 6 Months D50.9 - Iron deficiency anemia, unspecified, E11.9 - Type 2 diabetes mellitus without complications, E78.2 - Mixed hyperlipidemia, I25.10 - Atherosclerotic heart disease of [place] coronary artery without angina pectoris Complete Blood Count Auto Diff 6 Months D50.9 - Iron deficiency anemia, unspecified, E11.9 - Type 2 diabetes mellitus without complications, E78.2 - Mixed hyperlipidemia, I25.10 - Atherosclerotic heart disease of [place] coronary artery without angina pectoris Medications: New ferrous sulfate 325 mg PO DAILY 30 tabs 1RF Refilled metformin 850 mg PO TID 270 tabs 3RF E11.9 - Type 2 diabetes mellitus without complications, 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
--- OUTSIDE RECORDS SUMMARY | 2024-10-22 10:14 | XMS_ITS ---
Author Name [facility] Organization Unknown Care Team Organization Name Specialty Phone Email Start Date End Da te [employer] Insurance 06/11/2023
== END 2024-10-22 10:19 | disposition home or self-care (01) ==
LOC: HO.HMCC 09:19
PROVIDERS: PCP Internal Medicine; Visit Provider Internal Medicine
DX: E11.9 Type 2 diabetes mellitus without complications (principal); E78.2 Mixed hyperlipidemia; I25.10 Atherosclerotic heart disease of native coronary artery without angina pectoris; D50.9 Iron deficiency anemia, unspecified

== ENCOUNTER → 2024-10-22 09:18 | Outpatient (BNVA) | payer BC, SELFPAY | PROVIDERS: PCP Internal Medicine; Visit Provider Internal Medicine | DX: Z13.89 Encounter for screening for other disorder (principal); E11.9 Type 2 diabetes mellitus without complications; E78.2 Mixed hyperlipidemia; I25.10 Atherosclerotic heart disease of native coronary artery without angina pectoris; R79.89 Other specified abnormal findings of blood chemistry; D50.9 Iron deficiency anemia, unspecified ==